=== PATIENT | female | born 1940 | race Caucasian/White ===

== ENCOUNTER → 2018-12-24 01:40 | Outpatient (REF) | payer MEDICARE, MEDICAID, SELFPAY ==
[2019-01-25 16:33] LABS: POC Glucose,Bedside 59 (70-110)
== END ==
LOC: LAB 01:40
PROVIDERS: Visit Provider Internal Medicine
DX: B95.8 Unspecified staphylococcus as the cause of diseases classified elsewhere (principal); H10.89 Other conjunctivitis
CPT/HCPCS: 82962; 87070; 87077; 87186

== ENCOUNTER 2019-01-26 19:40 | Observation (INO) ==
[2019-01-26 20:02] LABS: Microscopic, Urine URINE MICROSCOPIC (MICROSCOPIC)
[2019-01-26 20:03] LABS: Basophils # 0.1 K/mm3 (0-0.2); Basophils % 1.2 % (0.1-2.0); Eosinophils # 0.1 K/mm3 (0.0-0.4); Eosinophils % 1.2 % (0.1-12.0); Hematocrit 33.9 % (37.0-47.0); Hemoglobin 10.7 g/dL (12.2-16.2); Lymphocytes # 1.9 K/mm3 (0.7-4.5); Lymphocytes % 17.8 % (10-50); Mean Corpuscular HGB Conc 31.6 g/dL (31.8-35.4); Mean Corpuscular Hemoglobin 29.2 pg (27.0-31.2); Mean Corpuscular Volume 92.6 fl (81-99); Mean Platelet Volume 8.7 fl (7.4-10.4); Monocytes # 0.6 K/mm3 (0.1-1.0); Monocytes % 6.1 % (1.7-9.3); Neutrophils # 7.8 K/mm3 (1.8-7.8); Neutrophils % 73.7 % (37.0-80.0); Platelet Count 363 K/mm3 (142-424); Red Blood Count 3.66 M/mm3 (4.20-5.40); Red Cell Distribution Width 14.6 % (11.5-17.5); White Blood Count 10.5 K/mm3 (4.8-10.8)
[2019-01-26 20:04] LABS: Appearance,Urine CLEAR (Clear); Bilirubin,Urine Negative (Negative); Blood, Urine Negative (Negative); Color,Urine YELLOW (Yellow); Glucose,Urine (UA) Negative (Negative); Ketones,Urine Negative (Negative); Leukocyte Esterase,Urine Negative (Negative); PH,Urine 5.5 (5.0-8.5); Protein,Urine Negative (Negative); Urobilinogen,Urine 0.2 EU/dl (0.2)
[2019-01-26 20:15] LABS: Alanine Aminotransferase 24 U/L (12-78); Albumin Level 2.3 gm/dL (3.4-5.0); Calcium 9.5 mg/dL (8.5-10.1); Glucose 245 mg/dL (74-106); Sodium 132 mmol/L (136-145)
[2019-01-26 20:33] LABS: Bacteria,Urine Trace /lpf; Squamous Epithelial Cell,Urine Occasional #/hpf (0-5); WBC,Urine Occasional #/hpf (0-3)
[2019-01-26 20:40] LABS: Albumin/Globulin Ratio 0.5 (1.1-1.8); Alkaline Phosphatase 104 U/L (46-116); Anion Gap 16.8 mEq/L (5-15); Bilirubin,Total 0.5 mg/dL (0.2-1.0); Blood Urea Nitrogen 43 mg/dL (7-18); Carbon Dioxide 23 mmol/L (21.0-32.0); Chloride 97 mmol/L (98-107); Globulin 4.4 gm/dl (1.3-3.2); Total Protein,Serum 6.7 gm/dL (6.4-8.2)
[2019-01-26 20:41] LABS: Aspartate Amino Transferase 25 U/L (15-37); Potassium 4.8 mmoL/L (3.5-5.1)
--- NOTE | 2019-01-26 21:40 | Emergency Department Note ---
ED Disposition Clinical Impression: UTI due to Klebsiella species, Delirium due to general medical condition, Renal insufficiency Diabetes Qualifiers: Diabetes mellitus type: type 2 Diabetes mellitus meterman insulin use: unspecified correction insulin use status Diabetes mellitus complication status: with other specified complication Qualified Code(s): E11.69 - Type 2 diabetes mellitus with other specified complication Disposition: Admitted as Observation Condition on Discharge: Good - Critical Care Critical Care Time: No Attestation: On 01/26/19, the high probability of a clinically significant, sudden or life threatening deterioration of the following system(s) required my full and direct attention, intervention and personal management. The time I documented below is in addition to time spent performing reported procedures but includes the following listed in this critical care notation. Medical Decision Making - Medical Records Medical records reviewed: Yes: I reviewed the patient's medical records. - [place] Inquiry Pt receiving controlled substance: No Vital Signs: 01/26/19 19:41 01/26/19 20:09 01/26/19 21:19 Temperature 98.8 F 98.6 F 98.4 F Temperature Source Oral Oral Oral Pulse Rate [Right] 104 H 91 H 89 Respiratory Rate 18 18 18 Blood Pressure [Right Arm] 122/73 104/67 L 137/74 Blood Pressure Mean [Right Arm] 89 79 95 Blood Pressure Source [Right Arm] Automatic Cuff Automatic Cuff Automatic Cuff Blood Pressure Position [Right Arm] Supine Supine Supine 02 Sat by Pulse Oximetry 94 L 93 L 95 Oxygen Delivery Method Room Air Room Air Room Air 01/26/19 21:48 Temperature Temperature Source Pulse Rate [Right] 87 Respiratory Rate 18 Blood Pressure [Right Arm] 110/71 Blood Pressure Mean [Right Arm] 84 Blood Pressure Source [Right Arm] Automatic Cuff Blood Pressure Position [Right Arm] Supine 02 Sat by Pulse Oximetry 94 L Oxygen Delivery Method Room Air - Lab Data Lab results reviewed: Yes: I reviewed the patient's lab results. Lab Results 01/26/19 19:50: Urine Color Yellow, Urine Appearance Clear, Urine pH 5.5, Ur Specific [place] 1.020, Urine Protein Negative, Urine Glucose (UA) Negative, Urine Ketones Negative, Urine Blood Negative, Urine Nitrate Negative, Urine Bilirubin Negative, Urine Urobilinogen 0.2, Ur Leukocyte Esterase Negative, Urine WBC Occasional, Ur Squamous Epith Cells Occasional, Urine Bacteria Trace 01/26/19 19:50: WBC 10.5, RBC 3.66 L, Hgb 10.7 L, Hct 33.9 L, MCV 92.6, MCH 29.2, MCHC 31.6 L, RDW 14.6, Plt Count 363, MPV 8.7, Neut % (Auto) 73.7, Lymph % (Auto) 17.8, [place] % (Auto) 6.1, Eos % (Auto) 1.2, Baso % (Auto) 1.2, Neut # (Auto) 7.8, Lymph # (Auto) 1.9, [place] # (Auto) 0.6, Eos # (Auto) 0.1, Baso # (Auto) 0.1 01/26/19 19:50: Sodium 132 L, Potassium 4.8, Chloride 97 L, Carbon Dioxide 23, Anion Gap 16.8 H, BUN 43 H, Creatinine 2.89 H, Estimated Creat Clear 21, Estimated GFR 16 L*, Est GFR ( Amer) 19 L*, Glucose 245 H, Calcium 9.5, Total Bilirubin 0.5, AST 25, ALT 24, Alkaline Phosphatase 104, Troponin I < 0.02, Total Protein 6.7, Albumin 2.3 L, Globulin 4.4 H, Albumin/Globulin Ratio 0.5 L 01/26/19 20:00: POC Glucose 240 H Result diagrams: 01/26/19 19:50 01/26/19 19:50 Orders (Tests/Meds): ED MEDICATIONS Generic Name Dose Route Start Last Admin Trade Name Freq PRN Reason Stop Dose Admin Sodium Chloride 1,000 mls @ 999 mls/hr 01/26/19 20:00 01/26/19 21:58 Sod Chlor 0.9% 1000ml Bag IV 01/26/19 21:00 999 mls/hr .Q1H1M MELINA Administration Ertapenem 1 gm/ Sodium 50 mls @ 100 mls/hr 01/26/19 21:45 01/26/19 21:58 Chloride IV 02/09/19 21:44 100 mls/hr Q24H MELINA Administration Protocol ORDERS Category Date Time Status CT head/brain wo con Stat Cat Scan 01/26/19 19:50 Taken CXR AP view [XR chest AP] Stat Exams 01/26/19 21:40 Taken Lactic Acid Stat Lab 01/26/19 22:20 Received Blood Culture Stat Micro 01/26/19 22:20 Received - Radiology Data #1 Image(s): Chest Image Reviewed: Yes I reviewed the patient's radiology image Preliminary Findings: Normal/NAD - CT Data CT Scan: Head Time Received: 22:[address] Reviewed: Yes: I have viewed the radiologist's interpretation Preliminary Findings: Abnormal (chronic changes ) - ECG Data Tracing #1 Normal Sinus Rhythm: Yes Ischemic changes: non-specific ST-T wave changes Altered Mental Status HPI - General Chief Complaint: Altered Mental Status Stated Complaint: AMS w/ shaking Time Seen by Provider: 01/26/19 20:00 Mode of Arrival: EMS Source of Information: Patient, Relative, EMS, Medical Record Limitations: No Limitations Description of Symptoms (Recalled from ER Triage Doc. by RN): [place] claims pt has AMS and is shaking more than usual - History of Present Illness HPI narrative: pt with recent esbl pos uti and was sent from [facility] with sob and change in mental status - pt with no vomiting or diarrhea - no chest pain MD complaint: altered mental status Onset (ago): hour(s) Timing confirmed by: family member Severity: moderate Consistency of symptoms: waxing and waning - Related Data Home Medications Medication Instructions Recorded Confirmed Acetaminophen [Tylenol 500mg 500 mg PO NEEDED PRN 01/22/19 01/26/19 tablet] Allopurinol [Allopurinol 100mg 100 mg PO BID 01/22/19 01/26/19 tablet] Atorvastatin Calcium [Atorvastatin 20 mg PO HS 01/22/19 01/26/19 20mg Tab] Calcitriol [Rocaltrol] 0.25 mcg PO DAILY 01/22/19 01/26/19 Ferrous Sulfate 325 mg PO DAILY 01/22/19 01/26/19 Furosemide [Lasix 40mg tab] 40 mg PO DAILY 01/22/19 01/26/19 Levothyroxine Sodium [Synthroid 100 mcg PO DAILY 01/22/19 01/26/19 100mcg (0.1mg) tablet] Metoprolol Tartrate [Lopressor 25 mg PO BID 01/22/19 01/26/19 25mg tablet] Oxybutynin Chloride [Ditropan 5mg 5 mg PO HS 01/22/19 01/26/19 tablet] Pantoprazole Sodium [Protonix 40mg 40 mg PO DAILY 01/22/19 01/26/19 tablet] Rivaroxaban [Xarelto 15mg tablet] 15 mg PO DAILY 01/22/19 01/26/19 Tramadol HCl [Tramadol 50mg 50 mg PO NEEDED PRN 01/22/19 01/26/19 Tab] Linagliptin [Tradjenta 5mg tablet] 5 mg PO DAILY 01/26/19 01/26/19 levoFLOXacin [Levaquin 500mg 500 mg PO DAILY 01/26/19 01/26/19 tab] Allergies Allergy/AdvReac Type Severity Reaction Status Date / Time No Known Allergies Allergy Verified 01/22/19 05:09 [facility] History - Hepatitis A Screen Drug use history?: No High risk sexual behaviors?: No History of sexually transmitted infection?: No Currently employed?: No Childcare worker?: No Do you have indoor plumbing?: Yes Do you have electricity?: Yes Attestation statement:: This patient has been screened for Hepatitis A risk factors. I have reviewed the patient's past medical history: Yes Medical History: Reports:: Diabetes Mellitus Type 2 - Social History Smoking Status: Former smoker Alcohol Intake: never Occupational Status: retired - Psychiatric History Expresses thoughts of harming self/others: None Suicide Plan Description: No Plan ROS Obtained: Yes All systems reviewed & no additional complaints - Constitutional Constitutional: Reports as per HPI, Denies fever(s) - Eyes Eyes: Denies change in vision - ENT Ears, Nose, Mouth, and Throat: Denies sore throat - Cardiovascular Cardiovascular: Denies chest pain - Respiratory Respiratory: No cough - Gastrointestinal Gastrointestingal: Denies: abdominal pain - Genitourinary Female Genitourinary: Denies hematuria - Musculoskeletal Musculoskeletal: Denies joint pain - Integumentary/Breasts Skin/Breast: Denies rash - Neurologic Neurologic: Denies seizure-like activity Physical Exam - General General appearance: alert - Head Head exam: normocephalic - Eye Eye exam: Present: PERRL, EOMI. Absent: scleral icterus - ENT ENT exam: Present: mucous membranes dry - Neck Neck exam: Present: trachea midline - Respiratory Respiratory exam: Present: other (dec bs bilat ). Absent: respiratory distress - Cardiovascular Cardiovascular exam: Present: regular rate, systolic murmur, +S4 - Abdominal Exam Abdominal exam: Present: soft. Absent: tenderness - Extremities Exam Extremities exam: Present: full ROM - Neurological Exam Neurological exam: Present: alert, CN II-XII intact - Psychiatric Psychiatric exam: Present: other (confused w/o focal changes ) - Skin Skin exam: Absent: rash
[2019-01-27 06:34] LABS: Anion Gap 11.3 mEq/L (5-15); Calcium 9.1 mg/dL (8.5-10.1); Potassium 4.3 mmoL/L (3.5-5.1)
[2019-01-27 06:35] LABS: Basophils # 0.1 K/mm3 (0-0.2); Basophils % 0.9 % (0.1-2.0); Eosinophils # 0.1 K/mm3 (0.0-0.4); Eosinophils % 1.8 % (0.1-12.0); Hematocrit 29.1 % (37.0-47.0); Lymphocytes # 1.9 K/mm3 (0.7-4.5); Lymphocytes % 24.1 % (10-50); Mean Corpuscular HGB Conc 30.8 g/dL (31.8-35.4); Mean Corpuscular Hemoglobin 28.8 pg (27.0-31.2); Mean Corpuscular Volume 93.5 fl (81-99); Mean Platelet Volume 8.4 fl (7.4-10.4); Monocytes # 0.6 K/mm3 (0.1-1.0); Monocytes % 7.4 % (1.7-9.3); Neutrophils # 5.3 K/mm3 (1.8-7.8); Neutrophils % 65.8 % (37.0-80.0); Platelet Count 277 K/mm3 (142-424); Red Blood Count 3.11 M/mm3 (4.20-5.40); Red Cell Distribution Width 14.5 % (11.5-17.5)
[2019-01-27 06:50] LABS: Hemoglobin 9.1 g/dL (12.2-16.2)
--- NOTE | 2019-01-27 07:25 | Pharmacy Consult Notes ---
[facility] Pharmacy VTE Monitoring - Patient Demographics Admission date: 01/26/19 Report Date: 01/27/19 Time: 07:25 Allergies/Adverse Reactions: Patient Allergies No Known Allergies Allergy (Verified 01/22/19 05:09) Height: 1.65 m Weight: 74.871 kg Patient Problems: Current Active Problems (Updated 01/26/19 @ 22:53 by Mike Dinh MD) Renal insufficiency (Acute) UTI due to Klebsiella species (Acute) Delirium due to general medical condition (Acute) Diabetes (Acute) - VTE Risk Labs: VTE Related Lab Results Hgb 9.1 g/dL (12.2-16.2) L D 01/27/19 06:12 Hct 29.1 % (37.0-47.0) L 01/27/19 06:12 Plt Count 277 K/mm3 (142-424) 01/27/19 06:12 BUN 40 mg/dL (7-18) H 01/27/19 06:12 Creatinine 2.66 mg/dL (0.55-1.02) H 01/27/19 06:12 Estimated Creat Clear 21 mL/min (50-200) 01/27/19 06:12 Was VTE Risk Assessment Performed: Yes VTE Score: 7 VTE Risk Level: Moderate Risk Clinical Trial Participant: No - Prophylaxis VTE Prophylaxis Ordered?: Yes Types of VTE Prophylaxis: TEDS Knee High, Pharmacological (xarelto) Location of Applied Device: Not Applicable
--- NOTE | 2019-01-27 08:31 | History & Physical Report ---
*Admission Date: 01/26/19 *Chief complaint: Shaking/poor oral intake/renal insufficiency *History of present illness: 78-year-old white female, recently checked into the [facility] with poor functional status, status post removal of meningioma and chronic kidney disease who was admitted to [facility] about 10 days ago. Diuretics were increased and she was found to have a urinary tract infection with E. coli, and has been on antibiotics as an outpatient. She became more dehydrated, and although her edema improved, came very shaky yesterday and some delirium was noted. Brought to the emergency department where she was found to have worsening renal insufficiency, dehydrated, and was admitted to hospital for further diagnostic testing. [facility] History I have reviewed the patient's past medical history: Yes Medical History: Reports:: Cancer, Diabetes Mellitus Type 2, Hyperlipidemia, Hypertension Denies:: Diabetes Mellitus Type 1, MRSA *Have you ever received a pneumonia vaccine?: Yes *Have you received a flu vaccine this season?: No Other Medical History: Reports: Hypothyroidism Other Surgeries: Yes: Cancer Surgery, Other (craniotomy for tumor removal) Amputation: No Fractures: No Comment: Meningioma removal at several months ago - *Social History Smoking Status: Former smoker Alcohol Intake: never *Occupational Status:: retired *Travel in the last 8 weeks: None - Psychiatric History Expresses thoughts of harming self/others: None Suicide Plan Description: No Plan Family Hx:: Unable to obtain Review of Systems - Review of Systems Review of systems:: pertinent systems reviewed and negative unless documented below - Constitutional Reports anorexia, Reports body ache(s) - Eyes Denies blind spots, Denies blurry vision, Denies change in vision - ENT Denies abnormal hearing - *Cardiovascular Reports excessive sweating, Reports generalized swelling, Denies chest pain, Denies chest pain at rest - *Respiratory Denies change in phlegm color, Denies shortness of breath with activity - *Gastrointestinal Denies abdominal pain, Denies bloating - *Musculoskeletal Reports abnormal walking, Reports joint swelling - *Neurologic Reports abnormal walking, Reports behavioral changes, Denies seizure-like activity - Psychiatric Reports abnormal sleep pattern Meds Home Medications Medication Instructions Recorded Confirmed Type Acetaminophen [Tylenol 500mg 500 mg PO NEEDED PRN 01/22/19 01/27/19 History tablet] Allopurinol [Allopurinol 100mg 100 mg PO DAILY 01/22/19 01/27/19 History tablet] Atorvastatin Calcium [Atorvastatin 20 mg PO HS 01/22/19 01/27/19 History 20mg Tab] Calcitriol [Rocaltrol] 0.25 mcg PO DAILY 01/22/19 01/27/19 History Ferrous Sulfate 325 mg PO BID 01/22/19 01/27/19 History Furosemide [Lasix 40mg tab] 40 mg PO DAILY 01/22/19 01/27/19 History Levothyroxine Sodium [Synthroid 100 mcg PO DAILY 01/22/19 01/27/19 History 100mcg (0.1mg) tablet] Metoprolol Tartrate [Lopressor 25 mg PO BID 01/22/19 01/27/19 History 25mg tablet] Oxybutynin Chloride [Ditropan 5mg 5 mg PO HS 01/22/19 01/27/19 History tablet] Pantoprazole Sodium [Protonix 40mg 40 mg PO DAILY 01/22/19 01/27/19 History tablet] Rivaroxaban [Xarelto 15mg tablet] 15 mg PO DAILY 01/22/19 01/27/19 History Tramadol HCl [Tramadol 50mg 50 mg PO TIDP PRN 01/22/19 01/27/19 History Tab] Linagliptin [Tradjenta 5mg tablet] 5 mg PO DAILY 01/26/19 01/27/19 History Allergies Allergy/AdvReac Type Severity Reaction Status Date / Time No Known Allergies Allergy Verified 01/22/19 05:09 Exam Vital signs and Labs for Last 24 Hours: Temp Pulse Resp BP Pulse Ox 99.1 F 86 18 116/65 94 L 01/27/19 04:00 01/27/19 04:00 01/27/19 04:00 01/27/19 04:00 01/27/19 04:00 Laboratory Results - last 24 hr 01/26/19 19:50: Urine Color Yellow, Urine Appearance Clear, Urine pH 5.5, Ur Specific [place] 1.020, Urine Protein Negative, Urine Glucose (UA) Negative, Urine Ketones Negative, Urine Blood Negative, Urine Nitrate Negative, Urine Bilirubin Negative, Urine Urobilinogen 0.2, Ur Leukocyte Esterase Negative, Urine WBC Occasional, Ur Squamous Epith Cells Occasional, Urine Bacteria Trace 01/26/19 19:50: WBC 10.5, RBC 3.66 L, Hgb 10.7 L, Hct 33.9 L, MCV 92.6, MCH 29.2, MCHC 31.6 L, RDW 14.6, Plt Count 363, MPV 8.7, Neut % (Auto) 73.7, Lymph % (Auto) 17.8, [place] % (Auto) 6.1, Eos % (Auto) 1.2, Baso % (Auto) 1.2, Neut # (Auto) 7.8, Lymph # (Auto) 1.9, [place] # (Auto) 0.6, Eos # (Auto) 0.1, Baso # (Auto) 0.1 01/26/19 19:50: Sodium 132 L, Potassium 4.8, Chloride 97 L, Carbon Dioxide 23, Anion Gap 16.8 H, BUN 43 H, Creatinine 2.89 H, Estimated Creat Clear 21, Estimated GFR 16 L*, Est GFR ( Amer) 19 L*, Glucose 245 H, Calcium 9.5, Total Bilirubin 0.5, AST 25, ALT 24, Alkaline Phosphatase 104, Troponin I < 0.02, Total Protein 6.7, Albumin 2.3 L, Globulin 4.4 H, Albumin/Globulin Ratio 0.5 L 01/26/19 20:00: POC Glucose 240 H 01/26/19 22:20: Lactate 1.1 01/27/19 06:09: POC Glucose 170 H 01/27/19 06:12: WBC 8.0, RBC 3.11 L, Hgb 9.1 L D, Hct 29.1 L, MCV 93.5, MCH 28.8, MCHC 30.8 L, RDW 14.5, Plt Count 277, MPV 8.4, Neut % (Auto) 65.8, Lymph % (Auto) 24.1, [place] % (Auto) 7.4, Eos % (Auto) 1.8, Baso % (Auto) 0.9, Neut # (Auto) 5.3, Lymph # (Auto) 1.9, [place] # (Auto) 0.6, Eos # (Auto) 0.1, Baso # (Auto) 0.1 01/27/19 06:12: Sodium 136, Potassium 4.3, Chloride 104, Carbon Dioxide 25, Anion Gap 11.3, BUN 40 H, Creatinine 2.66 H, Estimated Creat Clear 21, Estimated GFR 17 L*, Est GFR ( Amer) 21 L, Glucose 168 H D, Calcium 9.1 I & O for Last 24 hours: Intake & Output 01/24/19 01/25/19 01/26/19 01/27/19 11:59 11:59 11:59 11:59 Intake Total 1623 / 1623 Balance 1623 / 1623 Weight 165 lb 1 oz Narrative: Patient is pleasant, talkative. Is somewhat shaky in her hands, but no lower extremity shakiness or cerebral shakiness. Heart rate regular. Lungs are clear in the anterior laird, abdomen soft nontender Extremity edema has essentially resolved compared to visit in the [facility]. No skin breakdown. Able to move all extremities equally but is extremely weak. Assessment and Plan (1) Delirium due to general medical condition Current visit: Yes Status: Acute Category: Medical Code(s): F05 - Delirium due to known physiological condition I think this is from multiple issues. Check EEG. Labs seem to have improved this morning. 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 Sliding scale insulin. (3) Renal insufficiency Current visit: Yes Status: Acute Category: Medical Code(s): N28.9 - Disorder of kidney and ureter, unspecified Slightly improving. Continue current fluids. (4) UTI due to Klebsiella species Current visit: Yes Status: Acute Category: Medical Code(s): N39.0 - Urinary tract infection, site not specified; B96.1 - Klebsiella pneumoniae [K. pneumoniae] as the cause of diseases classified elsewhere On appropriate therapy. (5) Encephalomalacia Current visit: No Status: Acute Category: Medical Code(s): G93.89 - Other specified disorders of brain EEG.
--- NOTE | 2019-01-27 13:20 | Cardiology Report ---
PROCEDURE: 2-D M-mode and color Doppler study INDICATIONS FOR THE TEST: Chest pain COPD Heart Murmur Tobacco SmokingEX Palpitations Fatigue Syncope Edema Hypertension Diabetes Mellitus+ Rheumatic Fever SOB+AMAYA+Obesity Hyperlipidemia Family History HD Additional History UTI, acuted delerium, SEBASTIAN PATIENT INFORMATION HEIGHT: 65 WEIGHT: 165 GENDER: Female B/P: 137/74 2-D/M-MODE INTERPRETATION: 2-D MEASUREMENTS OBSERVED VALUES IN CMS Right Ventricular Dimension (RVDd) 2.8 Interventricular Septum (Thickness)(IVsd) 1.0 Left Ventricular Internal Dimensions(LVIDd) 4.1 Left Ventricular Posterior Wall (Thickness)(LVPWd) 1.0 Aortic Root 2.8 Aortic Cusp Separation 1.9 Left Atrial Dimensions (LAD) 3.3 2D 1. Left atrium is mildly enlarged, left ventricle is normal size, mild concentric left ventricular hypertrophy, visually estimated ejection fraction 55% with no regional wall motion abnormality. 2. The right atrium and right ventricle are mildly enlarged with normal contractility. 3. The aortic valve is thickened and calcified, leaflet continue to display mobility. 4. The mitral and tricuspid valve leaflets are minimally thickened. 5. The pulmonic valve is poorly visualized. 6. No significant pericardial effusion noted. DOPPLER INTERROGATION: Doppler interrogation of the aortic, mitral and tricuspid valvular presence of mean gradient of 14 mmHg across the aortic valve, consistent with mild aortic stenosis, there is no aortic insufficiency. Mild mitral and tricuspid regurgitation noted, calculated right ventricular systolic pressure is 39 mmHg consistent with mild pulmonary hypertension, grade 1 diastolic dysfunction seen without tissue Doppler evidence of raised left atrial pressure. CONCLUSION: 1. Mild biatrial enlargement, normal left ventricular size, mild concentric left ventricular hypertrophy, visually estimated ejection fraction of 55% with no regional wall motion abnormality, grade 1 diastolic dysfunction seen without tissue Doppler evidence of raised left atrial pressure. 2. Thickened and calcified aortic valve with mild aortic stenosis. 3. Mild mitral and tricuspid regurgitation, calculated at ventricular systolic pressure 39 mmHg consistent with mild pulmonary hypertension. 4. Mildly enlarged right ventricle with normal contractility. 5. No significant pericardial effusion noted.
[2019-01-28 06:35] LABS: Basophils # 0.1 K/mm3 (0-0.2); Basophils % 0.8 % (0.1-2.0); Eosinophils # 0.2 K/mm3 (0.0-0.4); Eosinophils % 2.3 % (0.1-12.0); Hematocrit 29.3 % (37.0-47.0); Hemoglobin 8.9 g/dL (12.2-16.2); Lymphocytes # 2.5 K/mm3 (0.7-4.5); Lymphocytes % 29.1 % (10-50); Mean Corpuscular HGB Conc 30.3 g/dL (31.8-35.4); Mean Corpuscular Hemoglobin 28.8 pg (27.0-31.2); Mean Corpuscular Volume 95.1 fl (81-99); Mean Platelet Volume 8.8 fl (7.4-10.4); Monocytes # 0.6 K/mm3 (0.1-1.0); Monocytes % 6.7 % (1.7-9.3); Neutrophils # 5.2 K/mm3 (1.8-7.8); Neutrophils % 61.2 % (37.0-80.0); Platelet Count 272 K/mm3 (142-424); Red Blood Count 3.08 M/mm3 (4.20-5.40); Red Cell Distribution Width 14.8 % (11.5-17.5); White Blood Count 8.5 K/mm3 (4.8-10.8)
[2019-01-28 06:51] LABS: Albumin Level 1.9 gm/dL (3.4-5.0); Albumin/Globulin Ratio 0.5 (1.1-1.8); Anion Gap 11.7 mEq/L (5-15); Bilirubin,Total 0.4 mg/dL (0.2-1.0); Globulin 3.6 gm/dl (1.3-3.2); Potassium 4.7 mmoL/L (3.5-5.1); Total Protein,Serum 5.5 gm/dL (6.4-8.2)
--- NOTE | 2019-01-28 10:31 | Progress Note ---
Internal Medicine - PN: Subj *Date: 01/28/19 *Time: 06:30 Interval history: Feels better overnight. Less shaking. Exam Vital signs and Labs for Last 24 Hours: Temp Pulse Resp BP Pulse Ox 98.2 F 79 19 103/54 L 94 L 01/28/19 08:00 01/28/19 08:00 01/28/19 08:00 01/28/19 08:00 01/28/19 08:00 Laboratory Results - last 24 hr 01/27/19 11:55: POC Glucose 166 H 01/27/19 16:58: POC Glucose 212 H 01/27/19 20:58: POC Glucose 205 H 01/28/19 06:22: WBC 8.5, RBC 3.08 L, Hgb 8.9 L, Hct 29.3 L, MCV 95.1, MCH 28.8, MCHC 30.3 L, RDW 14.8, Plt Count 272, MPV 8.8, Neut % (Auto) 61.2, Lymph % (Auto) 29.1, [place] % (Auto) 6.7, Eos % (Auto) 2.3, Baso % (Auto) 0.8, Neut # (Auto) 5.2, Lymph # (Auto) 2.5, [place] # (Auto) 0.6, Eos # (Auto) 0.2, Baso # (Auto) 0.1 01/28/19 06:22: Sodium 141, Potassium 4.7, Chloride 108 H, Carbon Dioxide 26, Anion Gap 11.7, BUN 32 H, Creatinine 2.23 H, Estimated Creat Clear 26, Estimated GFR 21 L, Est GFR ( Amer) 26 L D, Glucose 116 H, Calcium 9.0, Total Bilirubin 0.4, AST 16 D, ALT 16 D, Alkaline Phosphatase 92, Total Protein 5.5 L, Albumin 1.9 L D, Globulin 3.6 H, Albumin/Globulin Ratio 0.5 L 01/28/19 06:50: POC Glucose 116 H I & O for Last 24 hours: Intake & Output 01/25/19 01/26/19 01/27/19 01/28/19 11:59 11:59 11:59 11:59 Intake Total 1862 1963 / 1963 Output Total 600 / 600 Balance 1862 1363 / 1363 Weight 165 lb 1 oz 168 lb 3 oz Narrative: Alert, oriented times two. Less shaking. RRR, lungs clear Abd soft. No edema at this time. management supervisor intact. 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 pneumoniae] as the cause of diseases classified elsewhere (5) Encephalomalacia Current visit: No Status: Acute Category: Medical Code(s): G93.89 - Other specified disorders of brain - Assessment and plan all Dx Assessment and Plan for all problems:: SEBASTIAN on CKD improving. Stay on IVF. Close f.u of labs. ? DC in AM.
[2019-01-29 07:07] LABS: Basophils # 0.1 K/mm3 (0-0.2); Basophils % 0.8 % (0.1-2.0); Eosinophils # 0.1 K/mm3 (0.0-0.4); Eosinophils % 1.6 % (0.1-12.0); Hematocrit 30.7 % (37.0-47.0); Hemoglobin 9.6 g/dL (12.2-16.2); Lymphocytes # 2.1 K/mm3 (0.7-4.5); Lymphocytes % 23.5 % (10-50); Mean Corpuscular HGB Conc 31.2 g/dL (31.8-35.4); Mean Corpuscular Hemoglobin 29.6 pg (27.0-31.2); Mean Corpuscular Volume 94.8 fl (81-99); Mean Platelet Volume 8.6 fl (7.4-10.4); Monocytes # 0.5 K/mm3 (0.1-1.0); Monocytes % 5.6 % (1.7-9.3); Neutrophils # 6.1 K/mm3 (1.8-7.8); Neutrophils % 68.5 % (37.0-80.0); Platelet Count 286 K/mm3 (142-424); Red Blood Count 3.24 M/mm3 (4.20-5.40); Red Cell Distribution Width 14.8 % (11.5-17.5); White Blood Count 8.9 K/mm3 (4.8-10.8)
[2019-01-29 07:15] LABS: Anion Gap 14.2 mEq/L (5-15); Potassium 4.2 mmoL/L (3.5-5.1)
--- NOTE | 2019-01-29 07:30 | Discharge Summary ---
General - General Admission date:: 01/26/19 Discharge date: 01/29/19 HPI HPI: 78-year-old white female, recently checked into the [facility] with poor functional status, status post removal of meningioma and chronic kidney disease who was admitted to [facility] about 10 days ago. Diuretics were increased and she was found to have a urinary tract infection with E. coli, and has been on antibiotics as an outpatient. She became more dehydrated, and although her edema improved, came very shaky yesterday and some delirium was noted. Brought to the emergency department where she was found to have worsening renal insufficiency, dehydrated, and was admitted to hospital for further diagnostic testing. Hospital Course Hospital Course: Patient was admitted to the hospital, IV fluids were started. Her acute kidney injury superimposed on chronic kidney injury improved, as noted below and lab flow, creatinine improving to 1.9. She was placed on Invanz intravenously for her urinary tract infection, blood cultures were negative after 48 hours, and repeat urine cultures were also negative. Patient's diuretics were held, she did well with her hospital diet and no fluid reaccumulation was noted. CT scan of head showed no acute changes over age-related changes and EEG showed slowing consistent with age-related/metabolic encephalopathy but no epileptiform discharges. This morning she was improving in regards to shakiness, had a good diet. Remains somewhat disoriented but this seems to be her baseline. She had a mild decrease in hemoglobin, probably secondary to delusional effect but this rebounded this morning. Plan will be to discharge back to detention, to finish up p.o. antibiotic-I reviewed sensitivity panels from detention culture that showed E. coli urinary tract infection sensitive to levofloxacin. We will continue this at the detention. We will also adjust diuretic regimen now that she has been adequately diuresed. We will do cautious Lasix therapy on a daily basis, she will follow a low-salt diet, and we will get basic metabolic profile on Wednesday, February 01. Follow-up will be per our regular rounds next week. Objective Vital signs: Temp Pulse Resp BP Pulse Ox 97.8 F 81 18 120/71 97 01/29/19 03:46 01/29/19 03:46 01/29/19 03:46 01/29/19 03:46 01/29/19 03:46 Narrative: Alert, pleasant. Oriented to self, disoriented to place and time. Shakiness is much improved. Oropharynx clear and moist. Heart rate regular. Lungs have good air movement. Abdomen soft and nontender. Peripheral extremities have some brawny skin changes consistent with recent edema but edema is vastly improved. Pulses are present in all 4 extremities. No cranial nerve deficits. Somewhat globally weak but no focal deficits. Results Labs on day of discharge: Labs from last 24 hours 01/29/19 01/29/19 01/29/19 07:00 07:00 05:49 WBC 8.9 RBC 3.24 L Hgb 9.6 L Hct 30.7 L MCV 94.8 MCH 29.6 MCHC 31.2 L RDW 14.8 Plt Count 286 MPV 8.6 Neut % (Auto) 68.5 Lymph % (Auto) 23.5 [place] % (Auto) 5.6 Eos % (Auto) 1.6 Baso % (Auto) 0.8 Neut # (Auto) 6.1 Lymph # (Auto) 2.1 [place] # (Auto) 0.5 Eos # (Auto) 0.1 Baso # (Auto) 0.1 Sodium 142 Potassium 4.2 Chloride 108 H Carbon Dioxide 24 Anion Gap 14.2 BUN 25 H Creatinine 1.90 H Estimated Creat Clear 30 Estimated GFR 26 L Est GFR ( Amer) 31 L Glucose 151 H POC Glucose 148 H Calcium 9.0 01/28/19 01/28/19 01/28/19 20:12 16:43 11:20 WBC RBC Hgb Hct MCV MCH MCHC RDW Plt Count MPV Neut % (Auto) Lymph % (Auto) [place] % (Auto) Eos % (Auto) Baso % (Auto) Neut # (Auto) Lymph # (Auto) [place] # (Auto) Eos # (Auto) Baso # (Auto) Sodium Potassium Chloride Carbon Dioxide Anion Gap BUN Creatinine Estimated Creat Clear Estimated GFR Est GFR ( Amer) Glucose POC Glucose 211 H 176 H 260 H Calcium Preliminary micro results at discharge 01/26/19 22:20 Blood Culture - Preliminary Blood NO GROWTH AFTER 48 HOURS 01/26/19 22:20 Blood Culture - Preliminary Blood NO GROWTH AFTER 48 HOURS DS: Diagnosis - Discharge Diagnosis (1) Delirium due to general medical condition Status: Resolved (2) Diabetes Status: Chronic (3) Renal insufficiency Status: Chronic (4) UTI due to Klebsiella species Status: Ruled-out (5) Encephalomalacia Status: Chronic (6) E. coli UTI Status: Acute Discharge Plan - Patient Discharge Instructions ACTIVITY: Continue current activity DIET: low salt diet Patient Instructions: Delirium, DI for Urinary Tract Infection (UTI), DI for Multiple Drug-resistant Organism (MDRO) Infection - Follow up Plan Follow up with: Denise Oviedo APRN [Primary Care Provider] - Disposition: er [facility] Home Medications: Home Medications Medication Instructions Recorded Confirmed Type Acetaminophen [Tylenol 500mg 500 mg PO NEEDED PRN 01/22/19 01/27/19 History tablet] Allopurinol [Allopurinol 100mg 100 mg PO DAILY 01/22/19 01/27/19 History tablet] Atorvastatin Calcium [Atorvastatin 20 mg PO HS 01/22/19 01/27/19 History 20mg Tab] Calcitriol [Rocaltrol] 0.25 mcg PO DAILY 01/22/19 01/27/19 History Ferrous Sulfate 325 mg PO BID 01/22/19 01/27/19 History Furosemide [Lasix 40mg tab] 40 mg PO DAILY 01/22/19 01/27/19 History Levothyroxine Sodium [Synthroid 100 mcg PO DAILY 01/22/19 01/27/19 History 100mcg (0.1mg) tablet] Metoprolol Tartrate [Lopressor 25 mg PO BID 01/22/19 01/27/19 History 25mg tablet] Oxybutynin Chloride [Ditropan 5mg 5 mg PO HS 01/22/19 01/27/19 History tablet] Pantoprazole Sodium [Protonix 40mg 40 mg PO DAILY 01/22/19 01/27/19 History tablet] Rivaroxaban [Xarelto 15mg tablet] 15 mg PO DAILY 01/22/19 01/27/19 History Tramadol HCl [Tramadol 50mg 50 mg PO TIDP PRN 01/22/19 01/27/19 History Tab] Linagliptin [Tradjenta 5mg tablet] 5 mg PO DAILY 01/26/19 01/27/19 History levoFLOXacin [Levaquin 500mg 500 mg PO DAILY #5 tab 01/29/19 Rx tab] Prescriptions/Medication Reconciliation: New levoFLOXacin [Levaquin 500mg tab] 500 mg PO DAILY #5 tab Continued Metoprolol Tartrate [Lopressor 25mg tablet] 25 mg PO BID Allopurinol [Allopurinol 100mg tablet] 100 mg PO DAILY Furosemide [Lasix 40mg tab] 40 mg PO DAILY Tramadol HCl [Tramadol 50mg Tab] 50 mg PO TIDP PRN PRN Reason: Moderate Pain Rivaroxaban [Xarelto 15mg tablet] 15 mg PO DAILY Oxybutynin Chloride [Ditropan 5mg tablet] 5 mg PO HS Levothyroxine Sodium [Synthroid 100mcg (0.1mg) tablet] 100 mcg PO DAILY Ferrous Sulfate 325 mg PO BID Calcitriol [Rocaltrol] 0.25 mcg PO DAILY Acetaminophen [Tylenol 500mg tablet] 500 mg PO NEEDED PRN PRN Reason: pain Pantoprazole Sodium [Protonix 40mg tablet] 40 mg PO DAILY Atorvastatin Calcium [Atorvastatin 20mg Tab] 20 mg PO HS Linagliptin [Tradjenta 5mg tablet] 5 mg PO DAILY
== END 2019-01-29 09:50 ==
LOC: ER 19:40 → 2ND 19:40
PROVIDERS: ADMIT Family Medicine; ATTEND Internal Medicine Adolescent Medicine
CPT/HCPCS: 36415; 70450; 71010; 71045; 80048; 80053; 81001; 82962; 83605; 84484; 85025; 87040; 93005; 93306; 95816; 96365; 96367; 99285; G0378; J1335

== ENCOUNTER → 2019-02-09 15:22 | Outpatient (CLI) | payer MEDICARE, MEDICAID, SELFPAY ==
[2019-02-09 15:24] LABS: Adenovirus F 40/41, stool Not Detected (NotDetected); Astrovirus Not Detected (NotDetected); Campylobacter Not Detected (NotDetected); Clostridium Difficile A/B, PCR Not Detected (NotDetected); Cryptosporidium Not Detected (NotDetected); Cyclospora Cayetanesis Not Detected (NotDetected); Entamoeba histolytica Not Detected (NotDetected); Enteroaggregative E coli Not Detected (NotDetected); Enteropathogenic E coli Not Detected (NotDetected); Enterotoxigenic E coli Not Detected (NotDetected); Giardia lamblia Not Detected (NotDetected); Norovirus Not Detected (NotDetected); Plesimonas Shigalloides, PCR Not Detected (NotDetected); Rotavirus A Not Detected (NotDetected); Salmonella, PCR Not Detected (NotDetected); Sapovirus Not Detected (NotDetected); Shiga-like toxin E coli Not Detected (NotDetected); Shigella Enterovasive E coli Not Detected (NotDetected); Vibrio Cholerae Not Detected (NotDetected); Vibrio, PCR Not Detected (NotDetected); Yersinia Entercolitica, PCR Not Detected (NotDetected)
== END ==
PROVIDERS: Visit Provider Internal Medicine Adolescent Medicine
DX: R19.7 Diarrhea, unspecified (principal)
CPT/HCPCS: 87506

== ENCOUNTER → 2019-02-18 00:23 | Outpatient (REF) | payer MEDICARE, MEDICAID, SELFPAY ==
[2019-02-18 00:36] LABS: Microscopic, Urine URINE MICROSCOPIC (MICROSCOPIC)
[2019-02-18 00:49] LABS: Appearance,Urine CLOUDY (Clear); Bilirubin,Urine Negative (Negative); Blood, Urine 1+ (Negative); Color,Urine YELLOW (Yellow); Glucose,Urine (UA) TRACE (Negative); Ketones,Urine Negative (Negative); Leukocyte Esterase,Urine 3+ (Negative); Nitrate,Urine Negative (Negative); Protein,Urine 1+ (Negative); Specific Gravity, Urine 1.015 (1.005-1.030); Urobilinogen,Urine 0.2 EU/dl (0.2)
[2019-02-18 00:52] LABS: WBC,Urine TNTC #/hpf (0-3)
== END ==
LOC: LAB 00:23
PROVIDERS: Visit Provider Internal Medicine Adolescent Medicine
DX: N39.0 Urinary tract infection, site not specified (principal)
CPT/HCPCS: 81001; 87086

== ENCOUNTER 2019-03-31 18:50 | Inpatient (IN) ==
[2019-03-31 19:06] LABS: Microscopic, Urine URINE MICROSCOPIC (MICROSCOPIC)
--- NOTE | 2019-03-31 19:11 | Emergency Department Note ---
ED Disposition Clinical Impression: UTI (urinary tract infection), Dehydration Disposition: Admitted as Observation Condition on Discharge: Fair Time of Disposition: 19:59 - Critical Care Critical Care Time: No Attestation: On , the high probability of a clinically significant, sudden or life threatenin g deterioration of the following system(s) required my full and direct attention, intervention and personal management. The time I documented below is in addition to time spent performing reported procedures but includes the following listed in this critical care notation. Medical Decision Making - Medical Records Medical records reviewed: Yes: I reviewed the patient's medical records. - Preston Inquiry Pt receiving controlled substance: No Preston was queried for this patient: No Vital Signs: 03/31/19 18:50 03/31/19 18:54 Pulse Rate [Right Brachial] 83 83 Respiratory Rate 16 16 Blood Pressure [Right Arm] 109/57 L 109/57 L Blood Pressure Mean [Right Arm] 74 74 Blood Pressure Source [Right Arm] Automatic Cuff Automatic Cuff Blood Pressure Position [Right Arm] Sitting Sitting 02 Sat by Pulse Oximetry 98 98 Oxygen Delivery Method Room Air Room Air - Lab Data Lab results reviewed: Yes: I reviewed the patient's lab results. Lab Results 03/31/19 18:45: WBC 8.3, RBC 3.99 L, Hgb 11.7 L, Hct 37.4, MCV 93.7, MCH 29.3, MCHC 31.3 L, RDW 15.4, Plt Count 308, MPV 9.4, Neut % (Auto) 47.6, Lymph % (Auto) 38.6, [place] % (Auto) 7.0, Eos % (Auto) 6.1, Baso % (Auto) 0.7, Neut # (A uto) 4.0, Lymph # (Auto) 3.2, [place] # (Auto) 0.6, Eos # (Auto) 0.5 H, Baso # (Auto) 0.1 03/31/19 18:45: Urine Color Yellow, Urine Appearance Turbid, Urine pH 6.0, Ur Specific [place] 1.025, Urine Protein 2+, Urine Glucose (UA) Negative, Urine Ketones Trace, Urine Blood 2+, Urine Nitrate Negative, Urine Bilirubin Negative, Urine Urobilinogen 0.2, Ur Leukocyte Esterase 3+ A, Urine WBC Tntc, Ur Squamous Epith Cells Occasional, Urine Bacteria 4+ 03/31/19 18:47: Sodium 138, Potassium 3.5, Chloride 102, Carbon Dioxide 25, Anion Gap 14.5, BUN 58 H, Creatinine 3.27 H, Estimated Creat Clear 16, Estimated GFR 14 L*, Est GFR ( Amer) 17 L*, Glucose 191 H, Calcium 10.0, Troponin I < 0.02 03/31/19 18:47: Lactate 1.4 Result diagrams: 03/31/19 18:45 03/31/19 18:47 Orders (Tests/Meds): ED MEDICATIONS Generic Name Dose Route Start Last Admin Trade Name Freq PRN Reason Stop Dose Admin Ceftriaxone Sodium 2 gm/ 100 mls @ 200 mls/hr 03/31/19 19:45 03/31/19 19:54 Sodium Chloride IV 04/14/19 19:44 200 mls/hr Q24H MELINA Administration Protocol Ertapenem 1 gm/ Sodium 50 mls @ 100 mls/hr 03/31/19 20:00 Chloride IV 04/14/19 19:59 Q24H MELINA Protocol ORDERS Category Date Time Status CT abdomen pelvis wo con Stat Cat Scan 03/31/19 19:[address] head/brain wo con Stat Cat Scan 03/31/19 19:06 Taken XR chest AP Stat Exams 03/31/19 19:06 Taken Blood Culture Stat Micro 03/31/19 19:15 Received Urine Culture Stat Micro 03/31/19 18:45 Received - Physician Consults Physician Consulted: claritza Time: 19:59 Reason -: Admission General Adult HPI - General Chief complaint: Chest Pain Stated complaint: CHest Pain Time Seen by Provider: 03/31/19 19:08 Mode of Arrival: Ambulatory Source of Information: Patient, Relative, EMS Limitations: No Limitations Description of Symptoms (Recalled from ER Triage Doc. by RN): Pt presents from [place] with c/o chest pain, lethargic. - History of Present Illness HPI narrative: lethargic, anorexic refusing food x 3 days, grossly pyuric urine. - Related Data Home Medications Medication Instructions Recorded Confirmed Acetaminophen [Tylenol 500mg 500 mg PO NEEDED PRN 01/22/19 01/27/19 tablet] Allopurinol [Allopurinol 100mg 100 mg PO DAILY 01/22/19 01/27/19 tablet] Atorvastatin Calcium [Atorvastatin 20 mg PO HS 01/22/19 01/27/19 20mg Tab] Calcitriol [Rocaltrol] 0.25 mcg PO DAILY 01/22/19 01/27/19 Ferrous Sulfate 325 mg PO BID 01/22/19 01/27/19 Furosemide [Lasix 40mg tablet] 40 mg PO DAILY 01/22/19 01/27/19 Levothyroxine Sodium [Synthroid 100 mcg PO DAILY 01/22/19 01/27/19 100mcg (0.1mg) tablet] Metoprolol Tartrate [Lopressor 25 mg PO BID 01/22/19 01/27/19 25mg tablet] Oxybutynin Chloride [Ditropan 5mg 5 mg PO HS 01/22/19 01/27/19 tablet] Pantoprazole Sodium [Protonix 40mg 40 mg PO DAILY 01/22/19 01/27/19 tablet] Rivaroxaban [Xarelto 15mg tablet] 15 mg PO DAILY 01/22/19 01/27/19 Tramadol HCl [Tramadol 50mg 50 mg PO TIDP PRN 01/22/19 01/27/19 Tab] Linagliptin [Tradjenta 5mg tablet] 5 mg PO DAILY 01/26/19 01/27/19 Previous Rx's Medication Instructions Recorded levoFLOXacin [Levaquin 500mg 500 mg PO DAILY #5 tab 01/29/19 tab] Allergies Allergy/AdvReac Type Severity Reaction Status Date / Time No Known Allergies Allergy Verified 03/31/19 18:58 [facility] History - Hepatitis A Screen Drug use history?: No High risk sexual behaviors?: No History of sexually transmitted infection?: No Currently employed?: No Childcare worker?: No Do you have indoor plumbing?: Yes Do you have electricity?: Yes Attestation statement:: This patient has been screened for Hepatitis A risk factors. I have reviewed the patient's past medical history: Yes Medical History: Reports:: Cancer, Diabetes Mellitus Type 2, Hyperlipidemia, Hypertension Denies:: Diabetes Mellitus Type 1, MRSA Other Medical History: Reports: Hypothyroidism Other Surgeries: Yes: Cancer Surgery, Other (craniotomy for tumor removal) Amputation: No Fractures: No Comment: Meningioma removal at several months ago - Social History Smoking Status: Former smoker Alcohol Intake: never Occupational Status: retired Family Hx:: Unable to obtain ROS Obtained: Yes All systems reviewed & no additional complaints - Constitutional Constitutional: Denies chills, Denies fever(s) - Cardiovascular Cardiovascular: Reports chest pain, Reports other (fleeting today) - Respiratory Respiratory: No chest congestion, No cough - Gastrointestinal Gastrointestingal: Denies: abdominal pain - Genitourinary Female Genitourinary: Denies dysuria, Denies flank pain - Musculoskeletal Musculoskeletal: Denies muscle weakness, Denies muscle aches, Denies neck pain, Denies numbness - Integumentary/Breasts Skin/Breast: Denies rash, Denies skin pain - Neurologic Neurologic: Denies convulsions, Denies unsteadiness, Denies dizziness, Denies focal weakness, Reports numbness - Hematologic/Lymphatic Henatologic/Lymphatic: Denies easy bleeding, Denies easy bruising Physical Exam - General General appearance: lethargic, other (appears grossly dehydrated) - Head Head exam: atraumatic, normocephalic, normal inspection - ENT ENT exam: Present: mucous membranes dry - Respiratory Respiratory exam: Present: normal lung sounds bilaterally. Absent: respiratory distress - Cardiovascular Cardiovascular exam: Present: regular rate, normal rhythm. Absent: JVD - Abdominal Exam Abdominal exam: Present: soft. Absent: distention, tenderness, guarding - Extremities Exam Extremities exam: Present: normal inspection, full ROM, normal capillary refill. Absent: tenderness - Back Exam Back exam: Present: normal inspection. Absent: tenderness - Neurological Exam Neurological exam: Present: alert, CN II-XII intact. Absent: oriented X3, normal gait, motor sensory deficit - Psychiatric Psychiatric exam: Present: normal affect, normal mood - Skin Skin exam: Present: warm, dry, intact, normal color
[2019-03-31 19:14] LABS: Bilirubin,Urine Negative (Negative); Blood, Urine 2+ (Negative); Color,Urine YELLOW (Yellow); Glucose,Urine (UA) Negative (Negative); Ketones,Urine TRACE (Negative); Leukocyte Esterase,Urine 3+ (Negative); Protein,Urine 2+ (Negative); Specific Gravity, Urine 1.025 (1.005-1.030); Urobilinogen,Urine 0.2 EU/dl (0.2)
[2019-03-31 19:25] LABS: Basophils # 0.1 K/mm3 (0-0.2); Basophils % 0.7 % (0.1-2.0); Eosinophils # 0.5 K/mm3 (0.0-0.4); Eosinophils % 6.1 % (0.1-12.0); Hematocrit 37.4 % (37.0-47.0); Hemoglobin 11.7 g/dL (12.2-16.2); Lymphocytes # 3.2 K/mm3 (0.7-4.5); Lymphocytes % 38.6 % (10-50); Mean Corpuscular HGB Conc 31.3 g/dL (31.8-35.4); Mean Corpuscular Volume 93.7 fl (81-99); Mean Platelet Volume 9.4 fl (7.4-10.4); Monocytes # 0.6 K/mm3 (0.1-1.0); Neutrophils % 47.6 % (37.0-80.0); Platelet Count 308 K/mm3 (142-424); Red Blood Count 3.99 M/mm3 (4.20-5.40); Red Cell Distribution Width 15.4 % (11.5-17.5); White Blood Count 8.3 K/mm3 (4.8-10.8)
[2019-03-31 19:28] LABS: Appearance,Urine Turbid (Clear)
[2019-03-31 19:38] LABS: WBC,Urine TNTC #/hpf (0-3)
[2019-03-31 19:39] LABS: Bacteria,Urine 4+ /lpf; Squamous Epithelial Cell,Urine Occasional #/hpf (0-5)
[2019-03-31 19:43] LABS: Anion Gap 14.5 mEq/L (5-15); Blood Urea Nitrogen 58 mg/dL (7-18); Carbon Dioxide 25 mmol/L (21.0-32.0); Chloride 102 mmol/L (98-107); Glucose 191 mg/dL (74-106); Sodium 138 mmol/L (136-145)
[2019-04-01 07:43] LABS: Anion Gap 15.3 mEq/L (5-15)
[2019-04-01 07:46] LABS: Basophils # 0.1 K/mm3 (0-0.2); Basophils % 0.7 % (0.1-2.0); Eosinophils # 0.4 K/mm3 (0.0-0.4); Lymphocytes % 35.8 % (10-50); Mean Platelet Volume 11.2 fl (7.4-10.4)
[2019-04-01 07:52] LABS: Eosinophils % 5.4 % (0.1-12.0); Hematocrit 29.7 % (37.0-47.0); Lymphocytes # 2.8 K/mm3 (0.7-4.5); Mean Corpuscular HGB Conc 33.3 g/dL (31.8-35.4); Mean Corpuscular Volume 92.1 fl (81-99); Monocytes # 0.7 K/mm3 (0.1-1.0); Monocytes % 8.6 % (1.7-9.3); Neutrophils # 3.9 K/mm3 (1.8-7.8); Neutrophils % 50.3 % (37.0-80.0); Platelet Count 214 K/mm3 (142-424); Red Blood Count 3.23 M/mm3 (4.20-5.40); Red Cell Distribution Width 15.6 % (11.5-17.5); White Blood Count 7.8 K/mm3 (4.8-10.8)
[2019-04-01 07:56] LABS: Hemoglobin 9.9 g/dL (12.2-16.2)
[2019-04-01 07:58] LABS: Calcium 8.8 mg/dL (8.5-10.1)
--- NOTE | 2019-04-01 08:18 | History & Physical Report ---
*Admission Date: 03/31/19 *Chief complaint: Dehydration/urinary tract infection/acute kidney injury *History of present illness: 78-year-old white female with multiple medical problems including CHF, status post meningioma brain tumor removal, chronic kidney disease and history of recurrent urinary tract infections who was brought to the emergency department because of lethargy and somnolence at the [facility] here in [place] [facility]. In the emergency department was found to be exceedingly dry, creatinine elevati on markedly above her baseline was noted, and she was noted to have purulent urine when catheter was placed. Admitted to hospital for broad-spectrum antibiotics and IV fluids. [facility] History I have reviewed the patient's past medical history: Yes Medical History: Reports:: Diabetes Mellitus Type 2, Hyperlipidemia, Hypertension Denies:: Cancer, Diabetes Mellitus Type 1, MRSA *Have you ever received a pneumonia vaccine?: Yes *Have you received a flu vaccine this season?: Yes (fall 2017) Other Medical History: Reports: Anemia, Hypothyroidism Other Surgeries: Yes: Cancer Surgery, Cholecystectomy, Hysterectomy-Partial, Other (craniotomy for tumor removal) Amputation: No Fractures: No - *Social History Educational Level: Attended High School Smoking Status: Never smoker Alcohol Intake: never *Occupational Status:: retired Housing: [facility] *Travel in the last 8 weeks: None - Psychiatric History Expresses thoughts of harming self/others: None Suicide Plan Description: No Plan Family Hx:: Unable to obtain, Coronary Artery Disease, Diabetes, Heart Attack, Hyperlipidemia, Hypertension, Stroke Review of Systems - Review of Systems Review of systems:: pertinent systems reviewed and negative unless documented below Patient denies pain this morning. States she feels somewhat better. Does wish to eat some breakfast. Otherwise denies shortness of air. Denies diarrhea or constipation. Otherwise review of systems is unreliable given her confusion. - *Neurologic Reports numbness, Denies seizure-like activity, Denies unsteadiness, Denies dizziness, Denies localized weakness Meds Home Medications Medication Instructions Recorded Confirmed Type Acetaminophen [Tylenol 500mg 500 mg PO NEEDED PRN 01/22/19 04/01/19 History tablet] Allopurinol [Allopurinol 100mg 100 mg PO DAILY 01/22/19 04/01/19 History tablet] Atorvastatin Calcium [Atorvastatin 20 mg PO HS 01/22/19 04/01/19 History 20mg Tab] Calcitriol [Rocaltrol] 0.25 mcg PO DAILY 01/22/19 04/01/19 History Ferrous Sulfate 325 mg PO BID 01/22/19 04/01/19 History Furosemide [Lasix 40mg tablet] 20 mg PO DAILY 01/22/19 04/01/19 History Levothyroxine Sodium [Synthroid 100 mcg PO DAILY 01/22/19 04/01/19 History 100mcg (0.1mg) tablet] Metoprolol Tartrate [Lopressor 12.5 mg PO BID 01/22/19 04/01/19 History 25mg tablet] Oxybutynin Chloride [Ditropan 5mg 5 mg PO HS 01/22/19 04/01/19 History tablet] Pantoprazole Sodium [Protonix 40mg 40 mg PO DAILY 01/22/19 04/01/19 History tablet] Rivaroxaban [Xarelto 15mg tablet] 15 mg PO DAILY 01/22/19 04/01/19 History Tramadol HCl [Tramadol 50mg 50 mg PO TIDP PRN 01/22/19 04/01/19 History Tab] Linagliptin [Tradjenta 5mg tablet] 5 mg PO DAILY 01/26/19 04/01/19 History levoFLOXacin [Levaquin 500mg 500 mg PO DAILY #5 tab 01/29/19 04/01/19 Rx tab] Memantine HCl [Namenda] 1 each PO HS 04/01/19 04/01/19 History Mirtazapine 7.5 mg PO HSP PRN 04/01/19 04/01/19 History levETIRAcetam [Levetiracetam] 500 mg PO BID 04/01/19 04/01/19 History Allergies Allergy/AdvReac Type Severity Reaction Status Date / Time No Known Allergies Allergy Verified 03/31/19 18:58 Exam Vital signs and Labs for Last 24 Hours: Temp Pulse Resp BP Pulse Ox 97.9 F 73 17 106/57 L 96 04/01/19 08:00 04/01/19 08:00 04/01/19 08:00 04/01/19 08:00 04/01/19 08:00 Laboratory Results - last 24 hr 03/31/19 18:45: WBC 8.3, RBC 3.99 L, Hgb 11.7 L, Hct 37.4, MCV 93.7, MCH 29.3, MCHC 31.3 L, RDW 15.4, Plt Count 308, MPV 9.4, Neut % (Auto) 47.6, Lymph % (Auto) 38.6, [place] % (Auto) 7.0, Eos % (Auto) 6.1, Baso % (Auto) 0.7, Neut # (Auto) 4.0, Lymph # (Auto) 3.2, [place] # (Auto) 0.6, Eos # (Auto) 0.5 H, Baso # (Auto) 0.1 03/31/19 18:45: Urine Color Yellow, Urine Appearance Turbid, Urine pH 6.0, Ur Specific [place] 1.025, Urine Protein 2+, Urine Glucose (UA) Negative, Urine Ketones Trace, Urine Blood 2+, Urine Nitrate Negative, Urine Bilirubin Negative, Urine Urobilinogen 0.2, Ur Leukocyte Esterase 3+ A, Urine WBC Tntc, Ur Squamous Epith Cells Occasional, Urine Bacteria 4+ 03/31/19 18:47: Sodium 138, Potassium 3.5, Chloride 102, Carbon Dioxide 25, Anion Gap 14.5, BUN 58 H, Creatinine 3.27 H, Estimated Creat Clear 16, Estimated GFR 14 L*, Est GFR ( Amer) 17 L*, Glucose 191 H, Calcium 10.0, Troponin I < 0.02 03/31/19 18:47: Lactate 1.4 04/01/19 06:33: POC Glucose 111 H 04/01/19 06:55: WBC 7.8, RBC 3.23 L, Hgb 9.9 L D, Hct 29.7 L, MCV 92.1, MCH 30.6, MCHC 33.3, RDW 15.6, Plt Count 214 D, MPV 11.2 H, Neut % (Auto) 50.3, Lymph % (Auto) 35.8, [place] % (Auto) 8.6, Eos % (Auto) 5.4, Baso % (Auto) 0.7, [place] # (Auto) 3.9, Lymph # (Auto) 2.8, [place] # (Auto) 0.7, Eos # (Auto) 0.4, Baso # (Auto) 0.1 08/17/19 06:55: Sodium 143, Potassium 3.3 L, Chloride 111 H, Carbon Dioxide 20 L , Anion Gap 15.3 H, BUN 49 H, Creatinine 2.35 H D, Estimated Creat Clear 22, Estimated GFR 20 L, Est GFR ( Amer) 24 L D, Glucose 118 H D, Calcium 8.8 D I & O for Last 24 hours: Intake & Output 03/29/19 03/30/19 03/31/19 04/01/19 11:59 11:59 11:59 11:59 Intake Total 2765 / 2765 Output Total 500 / 500 Balance 2265 / 2265 Weight 149 lb 5 oz Narrative: Patient appears brighter and more responsive than reports from yesterday evening. Still continues to have significantly dry oral mucosa. Lungs have diminished air movement but clear. Abdomen soft, minimal bilateral lower quadrant tenderness. Distal perfusion is good but skin turgor is poor. Heart rate regular with previously noted holosystolic murmur. Able to move extremities but is extremely weak. Assessment and Plan (1) Acute kidney injury Current visit: Yes Status: Acute Category: Medical Code(s): N17.9 - Acute kidney failure, unspecified Significant creatinine elevation. Improved this morning. Continue IV fluids and monitor tomorrow. (2) Dehydration Current visit: Yes Status: Acute Category: Medical Code(s): E86.0 - Dehydration Continue IV fluids. Monitor hydration status (3) UTI (urinary tract infection) Current visit: Yes Status: Acute Category: Medical Code(s): N39.0 - Urinary tract infection, site not specified Await urine and blood culture results. Continue broad-spectrum empiric therapy. (4) Hypokalemia Current visit: No Status: Acute Category: Medical Code(s): E87.6 - Hypokalemia Somewhat improved this morning. (5) Diabetes Current visit: No Status: Chronic Category: Medical Code(s): E11.9 - Type 2 diabetes mellitus without complications Continue sliding scale insulin.
--- NOTE | 2019-04-01 10:40 | Pharmacy Consult Notes ---
[facility] Pharmacy VTE Monitoring - Patient Demographics Admission date: 03/31/19 Report Date: 04/01/19 Time: 10:40 Allergies/Adverse Reactions: Patient Allergies No Known Allergies Allergy (Verified 03/31/19 18:58) Height: 1.65 m Weight: 67.727 kg Patient Problems: Current Active Problems UTI (urinary tract infection) (Acute) Dehydration (Acute) Acute kidney injury (Acute) - VTE Risk Labs: VTE Related Lab Results Hgb 9.9 g/dL (12.2-16.2) L D 04/01/19 06:55 Hct 29.7 % (37.0-47.0) L 04/01/19 06:55 Plt Count 214 K/mm3 (142-424) D 04/01/19 06:55 BUN 49 mg/dL (7-18) H 04/01/19 06:55 Creatinine 2.35 mg/dL (0.55-1.02) H D 04/01/19 06:55 Estimated Creat Clear 22 mL/min (50-200) 04/01/19 06:55 VTE Score: 6 VTE Risk Level: Moderate Risk - Prophylaxis VTE Prophylaxis Ordered?: Yes Types of VTE Prophylaxis: Pharmacological Pharmacologic Type: Other (XARELTO) - VTE Diagnosis Confirmed Treatment or plan recommended: Continue Current Treatment
--- NOTE | 2019-04-01 12:42 | Electrocardiograph Report ---
APPROVED REPORT Exam: Resting ECG HR:88 bpm ECG Measurements Heart Rate 88 AXES OK 170 P -13 QRSd 90 QRS 1 QT 540 T-7 QTc 653 <Conclusion> Sinus rhythm with marked sinus arrhythmia Low voltage QRS Nonspecific ST and T wave abnormality Prolonged QT Abnormal ECG Electronically signed by : Terrence Wells, 04/01/2019 12:41:51
[2019-04-02 06:29] LABS: Basophils % 0.6 % (0.1-2.0); Eosinophils # 0.4 K/mm3 (0.0-0.4); Eosinophils % 6.1 % (0.1-12.0); Hematocrit 31.7 % (37.0-47.0); Hemoglobin 9.9 g/dL (12.2-16.2); Lymphocytes # 1.7 K/mm3 (0.7-4.5); Lymphocytes % 28.8 % (10-50); Mean Corpuscular HGB Conc 31.2 g/dL (31.8-35.4); Mean Corpuscular Volume 95.3 fl (81-99); Mean Platelet Volume 8.9 fl (7.4-10.4); Monocytes # 0.5 K/mm3 (0.1-1.0); Monocytes % 8.2 % (1.7-9.3); Neutrophils # 3.3 K/mm3 (1.8-7.8); Neutrophils % 56.4 % (37.0-80.0); Platelet Count 223 K/mm3 (142-424); Red Blood Count 3.33 M/mm3 (4.20-5.40); Red Cell Distribution Width 15.4 % (11.5-17.5); White Blood Count 5.8 K/mm3 (4.8-10.8)
[2019-04-02 06:48] LABS: Anion Gap 14.8 mEq/L (5-15); Calcium 8.8 mg/dL (8.5-10.1)
--- NOTE | 2019-04-02 07:44 | Progress Note ---
Internal Medicine - PN: Subj *Date: 04/02/19 *Time: 07:42 Interval history: Patient is awake and much more alert. Is disoriented to place and time but no she is in the hospital. Is eating some breakfast. Much better oral intake. Exam Vital signs and Labs for Last 24 Hours: Temp Pulse Resp BP Pulse Ox 98.0 F 77 18 109/67 L 99 04/02/19 04:00 04/02/19 04:00 04/02/19 04:00 04/02/19 04:00 04/02/19 04:00 Laboratory Results - last 24 hr 03/31/19 18:45: Urine Color Yellow, Urine Appearance Turbid, Urine pH 6.0, Ur Specific [place] 1.025, Urine Protein 2+, Urine Glucose (UA) Negative, Urine Ketones Trace, Urine Blood 2+, Urine Nitrate Negative, Urine Bilirubin Negative, Urine Urobilinogen 0.2, Ur Leukocyte Esterase 3+ A, Urine WBC Tntc, Ur Squamous Epith Cells Occasional, Urine Bacteria 4+ 04/01/19 06:55: WBC 7.8, RBC 3.23 L, Hgb 9.9 L D, Hct 29.7 L, MCV 92.1, MCH 30.6, MCHC 33.3, RDW 15.6, Plt Count 214 D, MPV 11.2 H, Neut % (Auto) 50.3, Lymph % (Auto) 35.8, [place] % (Auto) 8.6, Eos % (Auto) 5.4, Baso % (Auto) 0.7, [place] # (Auto) 3.9, Lymph # (Auto) 2.8, [place] # (Auto) 0.7, Eos # (Auto) 0.4, Baso # (Auto) 0.1 04/01/19 06:55: Sodium 143, Potassium 3.3 L, Chloride 111 H, Carbon Dioxide 20 L , Anion Gap 15.3 H, BUN 49 H, Creatinine 2.35 H D, Estimated Creat Clear 22, Estimated GFR 20 L, Est GFR ( Amer) 24 L D, Glucose 118 H D, Calcium 8.8 D 04/01/19 10:58: POC Glucose 107 04/01/19 15:44: POC Glucose 106 04/01/19 20:16: POC Glucose 154 H 04/02/19 05:05: POC Glucose 97 08/18/19 06:22: WBC 5.8 D, RBC 3.33 L, Hgb 9.9 L, Hct 31.7 L, MCV 95.3, MCH 29.8, MCHC 31.2 L, RDW 15.4, Plt Count 223, MPV 8.9, Neut % (Auto) 56.4, Lymph % (Auto) 28.8, [place] % (Auto) 8.2, Eos % (Auto) 6.1, Baso % (Auto) 0.6, Neut # (Auto) 3.3, Lymph # (Auto) 1.7, [place] # (Auto) 0.5, Eos # (Auto) 0.4, Baso # (Auto) 0.0 04/02/19 06:22: Sodium 146 H, Potassium 2.8 L*, Chloride 113 H, Carbon Dioxide 21, Anion Gap 14.8, BUN 33 H D, Creatinine 1.79 H D, Estimated Creat Clear 29, Estimated GFR 28 L, Est GFR ( Amer) 33 L D, Glucose 109 H, Calcium 8.8 I & O for Last 24 hours: Intake & Output 03/30/19 03/31/19 04/01/19 04/02/19 11:59 11:59 11:59 11:59 Intake Total 2765 / 2765 2459 / 2459 Output Total 500 / 500 950 / 950 Balance 2265 / 2265 1509 / 1509 Weight 149 lb 5 oz 153 lb 6 oz Microbiology Reports for the Last 24 Hours: Microbiology 03/31/19 19:15 Blood Blood Culture - Preliminary Gram Positive Cocci 03/31/19 19:15 Blood Blood Culture - Preliminary Gram Positive Cocci 03/31/19 18:45 Urine,Catheterized Urine Culture - Final Klebsiella pneumoniae Narrative: Much more alert. Cooperative. Follows commands. Oropharynx slightly dry but clear. No JVD. Anterior lung laird are clear. Heart rate regular with previously noted murmur. Abdomen soft, minimal bilateral lower quadrant tenderness but improved. Distal perfusion is vastly improved, no edema in hands or feet. Neurologic exam improved as noted above. Assessment and Plan (1) Acute kidney injury Current visit: Yes Status: Acute Category: Medical Code(s): N17.9 - Acute kidney failure, unspecified Improving, creatinine is normalizing this morning (2) Dehydration Current visit: Yes Status: Acute Category: Medical Code(s): E86.0 - Dehydration Improving. (3) UTI (urinary tract infection) Current visit: Yes Status: Resolved Category: Medical Code(s): N39.0 - Urinary tract infection, site not specified Secondary to ESBL positive Klebsiella organism. Discontinue ceftriaxone. Continue Invanz to which is sensitive. (4) Hypokalemia Current visit: No Status: Acute Category: Medical Code(s): E87.6 - Hypokalemia Replace potassium p.o. today. Watch tomorrow. (5) Diabetes Current visit: No Status: Chronic Qualifiers: Diabetes mellitus type: type 2 Diabetes mellitus terminal supervisor insulin use: without terminal supervisor use Diabetes mellitus complication status: without complication Qualified Code(s): E11.9 - Type 2 diabetes mellitus without complications Category: Medical Code(s): E11.9 - Type 2 diabetes mellitus without complications Complicates her care, however has been fairly euglycemic this admission
[2019-04-03 07:04] LABS: Anion Gap 16.4 mEq/L (5-15); Calcium 9.1 mg/dL (8.5-10.1)
[2019-04-03 07:06] LABS: Hematocrit 33.9 % (37.0-47.0); Hemoglobin 10.5 g/dL (12.2-16.2); Mean Platelet Volume 9.9 fl (7.4-10.4); Platelet Count 225 K/mm3 (142-424); Red Blood Count 3.53 M/mm3 (4.20-5.40); Red Cell Distribution Width 15.6 % (11.5-17.5); White Blood Count 5.7 K/mm3 (4.8-10.8)
[2019-04-03 07:07] LABS: Basophils # 0.2 K/mm3 (0-0.2); Basophils % 0.4 % (0.1-2.0); Eosinophils # 0.3 K/mm3 (0.0-0.4); Eosinophils % 5.1 % (0.1-12.0); Lymphocytes # 1.8 K/mm3 (0.7-4.5); Lymphocytes % 34.5 % (10-50); Monocytes # 0.5 K/mm3 (0.1-1.0); Monocytes % 8.8 % (1.7-9.3); Neutrophils # 2.9 K/mm3 (1.8-7.8); Neutrophils % 51.3 % (37.0-80.0)
--- NOTE | 2019-04-03 08:28 | Discharge Summary ---
General - General Admission date:: 03/31/19 Discharge date: 04/03/19 HPI HPI: 78-year-old white female with multiple medical problems including CHF, status post meningioma brain tumor removal, chronic kidney disease and history of recurrent urinary tract infections who was brought to the emergency department because of lethargy and somnolence at the long-term here in [facility]. In the emergency department was found to be exceedingly dry, creatinine elevation markedly above her baseline was noted, and she was noted to have purulent urine when catheter was placed. Admitted to hospital for broad-spectrum antibiotics and IV fluids. Hospital Course Hospital Course: Patient was admitted, placed on intravenous antibiotics and urine and blood cultures were obtained. Urine culture showed ESBL positive Klebsiella, sensitive to Invanz and this therapy was continued. Blood cultures showed staph epidermidis which was deemed to be a contaminant. She responded very nicely to IV antibiotics and was quickly back to her baseline in regards to eating and orientation. Her acute kidney injury responded very nicely to IV fluids and improved with improving creatinines to actually better than her baseline with this morning's level being 1.54. Urine in her Kelly catheter cleared very nicely. PICC line was placed yesterday morning for ongoing IV Invanz at her long-term care facility, but unfortunately she pulled this out inadvertently through the night last night. Plan will be to get this replaced today, if this is successful she will be discharged back to her long-term for 7 more days of intravenous Invanz, 1 g daily. She will hold her diuretics for a couple of days until we see her on her long-term rounds on Wednesday. She will need to have more attention to fluid administration at the long-term and oral fluids will need to be encouraged. Objective Vital signs: Temp Pulse Resp BP Pulse Ox 97.5 F L 86 16 128/74 100 04/03/19 05:30 04/03/19 05:30 04/03/19 05:30 04/03/19 05:30 04/03/19 05:30 Narrative: Patient is alert, more pleasant. Talkative, responds to commands. Lungs are clear in the anterior laird. Heart rate regular. Abdomen soft and nontender. Oropharynx clear, moist. No JVD noted. Distal perfusion is good, patient wearing compression stockings. Kelly catheter is draining clear yellow urine. Results Labs on day of discharge: Labs from last 24 hours 04/03/19 04/03/19 04/03/19 06:14 05:51 05:51 WBC 5.7 RBC 3.53 L Hgb 10.5 L Hct 33.9 L MCV 96.0 MCH 29.5 MCHC 31.0 L RDW 15.6 Plt Count 225 MPV 9.9 Neut % (Auto) 51.3 Lymph % (Auto) 34.5 [place] % (Auto) 8.8 Eos % (Auto) 5.1 Baso % (Auto) 0.4 Neut # (Auto) 2.9 Lymph # (Auto) 1.8 [place] # (Auto) 0.5 Eos # (Auto) 0.3 Baso # (Auto) 0.2 Sodium 146 H Potassium 3.4 L D Chloride 114 H Carbon Dioxide 19 L Anion Gap 16.4 H BUN 23 H D Creatinine 1.54 H Estimated Creat Clear 35 Estimated GFR 33 L Est GFR ( Amer) 40 L D Glucose 154 H D POC Glucose 199 H Calcium 9.1 04/02/19 04/02/19 04/02/19 21:31 17:14 11:15 WBC RBC Hgb Hct MCV MCH MCHC RDW Plt Count MPV Neut % (Auto) Lymph % (Auto) [place] % (Auto) Eos % (Auto) Baso % (Auto) Neut # (Auto) Lymph # (Auto) [place] # (Auto) Eos # (Auto) Baso # (Auto) Sodium Potassium Chloride Carbon Dioxide Anion Gap BUN Creatinine Estimated Creat Clear Estimated GFR Est GFR ( Amer) Glucose POC Glucose 190 H 162 H 127 H Calcium Preliminary micro results at discharge 03/31/19 19:15 Blood Culture - Preliminary Blood Gram Positive Cocci DS: Diagnosis - Discharge Diagnosis (1) Acute kidney injury Status: Resolved (2) Dehydration Status: Resolved (3) UTI (urinary tract infection) Status: Acute (4) Hypokalemia Status: Resolved (5) Diabetes Status: Chronic Discharge Plan - Patient Discharge Instructions ACTIVITY: Continue current activity DIET: continue same diet Additional Instructions: Push p.o. fluids Patient Instructions: Urinary Tract Infection, DI for Dehydration -- Adult, DI for Urinary Tract Infection (UTI), How to Prevent Falls, Central Line-Associated Bloodstream Infections, DI for Multiple Drug-resistant Organism (MDRO) Infection, Extended Spectrum Beta-Lactamase Infection, DI for Extended Spectrum Beta-Lactamase Infection - Follow up Plan Follow up with: Denise Oviedo APRN [Nurse Practitioner] - 04/04/19 Disposition: Xfer SNF Home Medications: Home Medications Medication Instructions Recorded Confirmed Type Acetaminophen [Tylenol 500mg 1,000 mg PO Q6HP PRN 01/22/19 04/01/19 History tablet] Allopurinol [Allopurinol 100mg 200 mg PO DAILY 01/22/19 04/01/19 History tablet] Atorvastatin Calcium [Atorvastatin 20 mg PO HS 01/22/19 04/01/19 History 20mg Tab] Calcitriol [Rocaltrol] 0.25 mcg PO DAILY 01/22/19 04/01/19 History Ferrous Sulfate 325 mg PO BID 01/22/19 04/01/19 History Levothyroxine Sodium [Synthroid 100 mcg PO DAILY 01/22/19 04/01/19 History 100mcg (0.1mg) tablet] Metoprolol Tartrate [Lopressor 12.5 mg PO BID 01/22/19 04/01/19 History 25mg tablet] Pantoprazole Sodium [Protonix 40mg 40 mg PO DAILY 01/22/19 04/01/19 History tablet] Rivaroxaban [Xarelto 15mg tablet] 15 mg PO DAILY 01/22/19 04/01/19 History Linagliptin [Tradjenta 5mg tablet] 5 mg PO DAILY 01/26/19 04/01/19 History Memantine HCl [Namenda] 1 each PO HS 04/01/19 04/01/19 History Mirtazapine 7.5 mg PO HS 04/01/19 04/01/19 History levETIRAcetam [Levetiracetam] 500 mg PO BID 04/01/19 04/01/19 History Ertapenem Sodium [Invanz 1gm Vial] 1 gm IV DAILY #7 vial 04/03/19 Rx Prescriptions/Medication Reconciliation: New Ertapenem Sodium [Invanz 1gm Vial] 1 gm IV DAILY #7 vial Continued Metoprolol Tartrate [Lopressor 25mg tablet] 12.5 mg PO BID Allopurinol [Allopurinol 100mg tablet] 200 mg PO DAILY Rivaroxaban [Xarelto 15mg tablet] 15 mg PO DAILY Levothyroxine Sodium [Synthroid 100mcg (0.1mg) tablet] 100 mcg PO DAILY Ferrous Sulfate 325 mg PO BID Calcitriol [Rocaltrol] 0.25 mcg PO DAILY Acetaminophen [Tylenol 500mg tablet] 1,000 mg PO Q6HP PRN PRN Reason: pain Memantine HCl [Namenda] 1 each PO HS levETIRAcetam [Levetiracetam] 500 mg PO BID Pantoprazole Sodium [Protonix 40mg tablet] 40 mg PO DAILY Atorvastatin Calcium [Atorvastatin 20mg Tab] 20 mg PO HS Linagliptin [Tradjenta 5mg tablet] 5 mg PO DAILY Mirtazapine 7.5 mg PO HS - Problem Reconciliation Problems Reviewed?: Yes
== END 2019-04-03 11:08 | DRG 690 ==
LOC: 2ND 18:50 → ER 18:50 → OBSVTOIN 20:47 → 2ND 20:48
PROVIDERS: ADMIT Internal Medicine Adolescent Medicine; ATTEND Internal Medicine Adolescent Medicine
CPT/HCPCS: 36415; 36569; 70450; 71010; 71045; 74176; 80048; 81001; 82962; 83605; 84484; 85025; 87040; 87077; 87086; 87088; 87186; 93005; 96365; 96367; 99285; C1751; J1335

== ENCOUNTER 2019-04-11 18:49 | Observation (INO) ==
--- NOTE | 2019-04-11 20:01 | Emergency Department Note ---
ED Disposition Clinical Impression: Renal insufficiency, Encephalomalacia Cerebrovascular accident Qualifiers: CVA mechanism: unspecified Qualified Code(s): I63.9 - Cerebral infarction, unspecified Disposition: Admitted as Observation Condition on Discharge: Serious Referrals: Terrence Wells MD [Primary Care Provider] - - Critical Care Critical Care Time: No Attestation: On 04/11/19, the high probability of a clinically significant, sudden or life threatening deterioration of the following system(s) required my full and direct attention, intervention and personal management. The time I documented below is in addition to time spent performing reported procedures but includes the following listed in this critical care notation. Medical Decision Making - Medical Records Medical records reviewed: Yes: I reviewed the patient's medical records. - [place] Inquiry Pt receiving controlled substance: No Vital Signs: 04/11/19 18:50 04/11/19 20:20 Temperature 97.9 F 96.9 F L Temperature Source Oral Rectal Pulse Rate [Right Radial] 92 H Respiratory Rate 18 18 Blood Pressure [Right Arm] 120/87 123/71 Blood Pressure Mean [Right Arm] 98 88 Blood Pressure Source [Right Arm] Automatic Cuff Blood Pressure Position [Right Arm] Sitting 02 Sat by Pulse Oximetry 99 Oxygen Delivery Method Room Air - Lab Data Lab results reviewed: Yes: I reviewed the patient's lab results. Lab Results 04/11/19 18:53: POC Glucose 173 H 04/11/19 20:10: WBC 9.8, RBC 3.25 L, Hgb 9.6 L, Hct 31.1 L, MCV 95.6, MCH 29.5, MCHC 30.9 L, RDW 15.9, Plt Count 194, MPV 8.6, Neut % (Auto) 61.4, Lymph % (Auto) 29.3, [place] % (Auto) 3.7, Eos % (Auto) 5.2, Baso % (Auto) 0.4, Neut # (Auto) 6.0, Lymph # (Auto) 2.9, [place] # (Auto) 0.4, Eos # (Auto) 0.5 H, Baso # (Auto) 0.0 04/11/19 20:10: PT 12.1 H, INR 1.17 H, APTT 35.7 H 04/11/19 20:10: Sodium 142, Potassium 3.9, Chloride 111 H, Carbon Dioxide 21, Anion Gap 13.9, BUN 14, Creatinine 1.42 H, Estimated Creat Clear 41, Estimated GFR 36 L, Est GFR ( Amer) 44 L, Glucose 174 H, Calcium 9.4, Triglycerides 59, Cholesterol 67 L, LDL Cholesterol 11, VLDL Cholesterol 12, HDL Cholesterol 44, Cholesterol/HDL Ratio 1.5 04/11/19 20:35: Urine Color Yellow, Urine Appearance Clear, Urine pH 5.5, Ur Specific [place] 1.025, Urine Protein Negative, Urine Glucose (UA) Negative, Urine Ketones Negative, Urine Blood Negative, Urine Nitrate Negative, Urine Bilirubin Negative, Urine Urobilinogen 0.2, Ur Leukocyte Esterase Trace, Urine WBC 10-20, Ur Squamous Epith Cells 10-20, Urine Bacteria 1+ Result diagrams: 04/11/19 20:10 04/11/19 20:10 Orders (Tests/Meds): ED MEDICATIONS Generic Name Dose Route Start Last Admin Trade Name Freq PRN Reason Stop Dose Admin Sodium Chloride 1,000 mls @ 999 mls/hr 04/11/19 19:15 04/11/19 21:04 Sod Chlor 0.9% 1000ml Bag IV 04/11/19 20:15 999 mls/hr .[id number] MELINA Administration ORDERS Category Date Time Status Liver Panel Stat Lab 04/11/19 20:10 Received Trop I [Troponin I] Stat Lab 04/11/19 20:10 Received Urine Culture Stat Micro 04/11/19 20:35 Received - CT Data CT Scan: Head Time Received: 19:[address] Reviewed: Yes: I have viewed the radiologist's interpretation Preliminary Findings: Normal/NAD - ECG Data Tracing #1 Normal Sinus Rhythm: Yes Ischemic changes: non-specific ST-T wave changes ECG compared to prior tracings: there are no significant changes - Physician Consults Physician Consulted: claritza Reason -: Admission Altered Mental Status HPI - General Chief Complaint: Neuro Symptoms/Deficit Stated Complaint: long term reports slurred speech Time Seen by Provider: 04/11/19 20:00 Mode of Arrival: EMS Source of Information: Patient, Relative, EMS, Medical Record Limitations: No Limitations Description of Symptoms (Recalled from ER Triage Doc. by RN): per long term report pt began having slurred speech approx 1 hour. Pt is alert, oriented x3 upon arrival to ED. Pt has no complaints, denies presence of pain, states she did not sleep well lastnight. pt recently finished invanz for UTI, pt has picc in LUE in place. Speech not noted to be slurred, somewhat mumbled in nature. Pts daughter reports he speech is not as clear as her normal. - History of Present Illness HPI narrative: pt unable to give hx but daughter reports had slurred speech earlier today and again this pm - pt confused with recent iv treatment for uti - no fever or trauma reported MD complaint: altered mental status Onset (ago): hour(s) Timing confirmed by: family member Severity: moderate Consistency of symptoms: waxing and waning Associated symptoms: denies other symptoms - Related Data Home Medications Medication Instructions Recorded Confirmed Acetaminophen [Tylenol 500mg 1,000 mg PO Q6HP PRN 01/22/19 04/11/19 tablet] Allopurinol [Allopurinol 100mg 200 mg PO DAILY 01/22/19 04/11/19 tablet] Atorvastatin Calcium [Atorvastatin 20 mg PO HS 01/22/19 04/11/19 20mg Tab] Calcitriol [Rocaltrol] 0.25 mcg PO DAILY 01/22/19 04/11/19 Ferrous Sulfate 325 mg PO BID 01/22/19 04/11/19 Levothyroxine Sodium [Synthroid 100 mcg PO DAILY 01/22/19 04/11/19 100mcg (0.1mg) tablet] Metoprolol Tartrate [Lopressor 12.5 mg PO BID 01/22/19 04/11/19 25mg tablet] Pantoprazole Sodium [Protonix 40mg 40 mg PO DAILY 01/22/19 04/11/19 tablet] Rivaroxaban [Xarelto 15mg tablet] 15 mg PO DAILY 01/22/19 04/11/19 Linagliptin [Tradjenta 5mg tablet] 5 mg PO DAILY 01/26/19 04/11/19 Memantine HCl [Namenda] 1 each PO HS 04/01/19 04/11/19 Mirtazapine 7.5 mg PO HS 04/01/19 04/11/19 levETIRAcetam [Levetiracetam] 500 mg PO BID 04/01/19 04/11/19 KCl 10mEq/100ml [Potassium 20 meq PO DAILY 04/11/19 04/11/19 Chloride 10mEq/100mL IVPB] Allergies Allergy/AdvReac Type Severity Reaction Status Date / Time No Known Allergies Allergy Verified 03/31/19 18:58 [facility] History - Hepatitis A Screen Drug use history?: No High risk sexual behaviors?: No History of sexually transmitted infection?: No Currently employed?: No Childcare worker?: No Do you have indoor plumbing?: Yes Do you have electricity?: Yes Attestation statement:: This patient has been screened for Hepatitis A risk factors. I have reviewed the patient's past medical history: Yes Medical History: Reports:: Cancer (neoplasm of brain), Diabetes Mellitus Type 2, Hyperlipidemia, Hypertension Denies:: Diabetes Mellitus Type 1, MRSA Other Medical History: Reports: Anemia, Hypothyroidism Other Surgeries: Yes: Cancer Surgery, Cholecystectomy, Hysterectomy-Partial, Other (craniotomy for tumor removal) Amputation: No Fractures: No Comment: Meningioma removal at several months ago - Social History Smoking Status: Never smoker Alcohol Intake: never Occupational Status: retired Housing: long term Family Hx:: Unable to obtain, Coronary Artery Disease, Diabetes, Heart Attack, Hyperlipidemia, Hypertension, Stroke ROS Obtained: Yes All systems reviewed & no additional complaints - Constitutional Constitutional: Denies fever(s) - Eyes Eyes: Denies change in vision - Cardiovascular Cardiovascular: Denies chest pain - Respiratory Respiratory: No cough - Gastrointestinal Gastrointestingal: Denies: vomiting - Genitourinary Female Genitourinary: Denies hematuria - Musculoskeletal Musculoskeletal: Denies joint pain - Integumentary/Breasts Skin/Breast: Denies rash - Neurologic Neurologic: Reports as per HPI, Reports abnormal speech, Denies focal weakness, Denies seizure-like activity Physical Exam - General General appearance: alert - Head Head exam: normocephalic - Eye Eye exam: Present: PERRL, EOMI. Absent: scleral icterus - ENT ENT exam: Present: mucous membranes dry - Neck Neck exam: Present: trachea midline - Respiratory Respiratory exam: Present: other (dec bs bilat ). Absent: respiratory distress - Cardiovascular Cardiovascular exam: Present: irregular rhythm, systolic murmur, +S4 - Abdominal Exam Abdominal exam: Present: soft - Extremities Exam Extremities exam: Present: pedal edema. Absent: calf tenderness - Neurological Exam Neurological exam: Present: alert, CN II-XII intact. Absent: other (gcs=14 and no posturing - oriented to person ) - Skin Skin exam: Present: intact
[2019-04-11 20:25] LABS: Basophils % 0.4 % (0.1-2.0); Eosinophils # 0.5 K/mm3 (0.0-0.4); Eosinophils % 5.2 % (0.1-12.0); Hematocrit 31.1 % (37.0-47.0); Hemoglobin 9.6 g/dL (12.2-16.2); Lymphocytes # 2.9 K/mm3 (0.7-4.5); Lymphocytes % 29.3 % (10-50); Mean Corpuscular HGB Conc 30.9 g/dL (31.8-35.4); Mean Corpuscular Volume 95.6 fl (81-99); Mean Platelet Volume 8.6 fl (7.4-10.4); Monocytes # 0.4 K/mm3 (0.1-1.0); Monocytes % 3.7 % (1.7-9.3); Neutrophils % 61.4 % (37.0-80.0); Platelet Count 194 K/mm3 (142-424); Red Blood Count 3.25 M/mm3 (4.20-5.40); Red Cell Distribution Width 15.9 % (11.5-17.5); White Blood Count 9.8 K/mm3 (4.8-10.8)
[2019-04-11 20:35] LABS: Anion Gap 13.9 mEq/L (5-15); Calcium 9.4 mg/dL (8.5-10.1); Chol/HDL Ratio 1.5 (1-3.5)
[2019-04-11 20:41] LABS: INR 1.17 (0.9-1.1); Prothrombin Time 12.1 seconds (9.4-11.8)
[2019-04-11 20:42] LABS: Microscopic, Urine URINE MICROSCOPIC (MICROSCOPIC)
[2019-04-11 20:42] LABS: Activated Partial Thrombo Time 35.7 seconds (23.6-34.0)
[2019-04-11 20:45] LABS: Appearance,Urine CLEAR (Clear); Bilirubin,Urine Negative (Negative); Blood, Urine Negative (Negative); Color,Urine YELLOW (Yellow); Glucose,Urine (UA) Negative (Negative); Ketones,Urine Negative (Negative); Leukocyte Esterase,Urine TRACE (Negative); PH,Urine 5.5 (5.0-8.5); Protein,Urine Negative (Negative); Specific Gravity, Urine 1.025 (1.005-1.030); Urobilinogen,Urine 0.2 EU/dl (0.2)
[2019-04-11 21:06] LABS: Bacteria,Urine 1+ /lpf
[2019-04-11 21:38] LABS: Alanine Aminotransferase 10 U/L (12-78); Alkaline Phosphatase 138 U/L (46-116); Aspartate Amino Transferase 18 U/L (15-37); Bilirubin,Direct 0.1 mg/dL (0.0-0.2); Bilirubin,Indirect 0.2 mg/dL (0.0-0.9); Bilirubin,Total 0.3 mg/dL (0.2-1.0); Total Protein,Serum 5.5 gm/dL (6.4-8.2)
[2019-04-12 06:31] LABS: Basophils % 0.3 % (0.1-2.0); Eosinophils # 0.5 K/mm3 (0.0-0.4); Eosinophils % 6.8 % (0.1-12.0); Hematocrit 28.1 % (37.0-47.0); Hemoglobin 8.7 g/dL (12.2-16.2); Lymphocytes # 2.1 K/mm3 (0.7-4.5); Lymphocytes % 31.4 % (10-50); Mean Corpuscular Volume 95.3 fl (81-99); Mean Platelet Volume 8.3 fl (7.4-10.4); Monocytes # 0.4 K/mm3 (0.1-1.0); Monocytes % 6.2 % (1.7-9.3); Neutrophils # 3.8 K/mm3 (1.8-7.8); Neutrophils % 55.3 % (37.0-80.0); Platelet Count 172 K/mm3 (142-424); Red Blood Count 2.94 M/mm3 (4.20-5.40); Red Cell Distribution Width 15.9 % (11.5-17.5); White Blood Count 6.8 K/mm3 (4.8-10.8)
[2019-04-12 06:47] LABS: Anion Gap 12.6 mEq/L (5-15); Calcium 9.2 mg/dL (8.5-10.1)
--- NOTE | 2019-04-12 07:16 | Pharmacy Consult Notes ---
[facility] VTE Monitoring - Patient Demographics Admission date: 04/12/19 Report Date: 04/12/19 Time: 07:15 Allergies/Adverse Reactions: Patient Allergies No Known Allergies Allergy (Verified 03/31/19 18:58) Height: 1.73 m Weight: 70.335 kg Patient Problems: Current Active Problems Renal insufficiency (Chronic) Encephalomalacia (Chronic) Cerebrovascular accident (Acute) - VTE Risk Labs: VTE Related Lab Results Hgb 8.7 g/dL (12.2-16.2) L 04/12/19 05:26 Hct 28.1 % (37.0-47.0) L 04/12/19 05:26 Plt Count 172 K/mm3 (142-424) 04/12/19 05:26 PT 12.1 seconds (9.4-11.8) H 04/11/19 20:10 INR 1.17 (0.9-1.1) H 04/11/19 20:10 APTT 35.7 seconds (23.6-34.0) H 04/11/19 20:10 BUN 12 mg/dL (7-18) 04/12/19 05:26 Creatinine 1.25 mg/dL (0.55-1.02) H 04/12/19 05:26 Estimated Creat Clear 43 mL/min (50-200) 04/12/19 05:26 Was VTE Risk Assessment Performed: Yes VTE Score: 6 VTE Risk Level: Moderate Risk Clinical Trial Participant: No - Prophylaxis VTE Prophylaxis Ordered?: Yes Types of VTE Prophylaxis: TEDS Knee High, Pharmacological Pharmacologic Type: Other (XARELTO)
--- NOTE | 2019-04-12 08:08 | H&P/Discharge Summary ---
General - General Admission date:: 04/11/19 Discharge date: 04/12/19 *Admission Date: 04/12/19 *Chief complaint: speech slurred *History of present illness: 78-year-old white female[facility] of [facility], hallucinatory activity and resection of brain mass in November [address] [facility], who is been left with a left- sided hemiparesis and some speech deficits. Her daughter became concerned yesterday because of a possible worsening of her speech slurring and brought her to the emergency department, concerned about stroke. CT scan in the ER showed no changes over her chronic changes, she was admitted overnight for further neurologic evaluation and neuro checks. Of note, patient's recently undergone cystoscopy treatment for UTI. Urine in the ER was clear. White count was also normal. [facility] History I have reviewed the patient's past medical history: Yes Medical History: Reports:: Cancer (neoplasm of brain), Congestive Heart Failure, Diabetes Mellitus Type 2, Hyperlipidemia, Hypertension Denies:: Diabetes Mellitus Type 1, MRSA *Have you ever received a pneumonia vaccine?: No *Have you received a flu vaccine this season?: Yes Other Medical History: Reports: Anemia, Hypothyroidism Other Surgeries: Yes: Cancer Surgery, Cholecystectomy, Hysterectomy-Partial, Other (craniotomy for tumor removal) Amputation: No Fractures: No - *Social History Educational Level: Completed High School Smoking Status: Never smoker Alcohol Intake: never *Occupational Status:: retired Housing: [facility] Household Members: other *Travel in the last 8 weeks: None - Psychiatric History Expresses thoughts of harming self/others: None Suicide Plan Description: No Plan Family Hx:: Coronary Artery Disease, Diabetes, Heart Attack, Hyperlipidemia, Hypertension, Stroke Review of Systems - Review of Systems Review of systems:: unable to obtain Patient this morning complains of no pain. Complains of no headache. Otherwise review of systems unobtainable secondary to communication and cognitive deficits. - *Neurologic Reports abnormal speech, Denies localized weakness, Denies seizure-like activity Exam Vital signs and Labs for Last 24 Hours: Temp Pulse Resp BP Pulse Ox 98.0 F 84 18 110/53 L 92 L 04/12/19 08:00 04/12/19 08:00 04/12/19 08:00 04/12/19 08:00 04/12/19 08:00 Laboratory Results - last 24 hr 04/11/19 18:53: POC Glucose 173 H 04/11/19 20:10: WBC 9.8, RBC 3.25 L, Hgb 9.6 L, Hct 31.1 L, MCV 95.6, MCH 29.5, MCHC 30.9 L, RDW 15.9, Plt Count 194, MPV 8.6, Neut % (Auto) 61.4, Lymph % (Auto) 29.3, [place] % (Auto) 3.7, Eos % (Auto) 5.2, Baso % (Auto) 0.4, Neut # (Auto) 6.0, Lymph # (Auto) 2.9, [place] # (Auto) 0.4, Eos # (Auto) 0.5 H, Baso # (Auto) 0.0 04/11/19 20:10: PT 12.1 H, INR 1.17 H, APTT 35.7 H 04/11/19 20:10: Sodium 142, Potassium 3.9, Chloride 111 H, Carbon Dioxide 21, Anion Gap 13.9, BUN 14, Creatinine 1.42 H, Estimated Creat Clear 41, Estimated GFR 36 L, Est GFR ( Amer) 44 L, Glucose 174 H, Calcium 9.4, Triglycerides 59, Cholesterol 67 L, LDL Cholesterol 11, VLDL Cholesterol 12, HDL Cholesterol 44, Cholesterol/HDL Ratio 1.5 04/11/19 20:10: Total Bilirubin 0.3, Direct Bilirubin 0.1, Indirect Bilirubin 0.2, AST 18, ALT 10 L, Alkaline Phosphatase 138 H, Troponin I < 0.02, Total Protein 5.5 L, Albumin 2.0 L 04/11/19 20:35: Urine Color Yellow, Urine Appearance Clear, Urine pH 5.5, Ur Specific Shushan 1.025, Urine Protein Negative, Urine Glucose (UA) Negative, Urine Ketones Negative, Urine Blood Negative, Urine Nitrate Negative, Urine Bilirubin Negative, Urine Urobilinogen 0.2, Ur Leukocyte Esterase Trace, Urine WBC 10-20, Ur Squamous Epith Cells 10-20, Urine Bacteria 1+ 04/12/19 00:40: Troponin I < 0.02 04/12/19 03:47: Troponin I < 0.02 04/12/19 05:26: WBC 6.8 D, RBC 2.94 L, Hgb 8.7 L, Hct 28.1 L, MCV 95.3, MCH 29.5, MCHC 31.0 L, RDW 15.9, Plt Count 172, MPV 8.3, Neut % (Auto) 55.3, Lymph % (Auto) 31.4, [place] % (Auto) 6.2, Eos % (Auto) 6.8, Baso % (Auto) 0.3, Neut # (Auto) 3.8, Lymph # (Auto) 2.1, [place] # (Auto) 0.4, Eos # (Auto) 0.5 H, Baso # (Auto) 0.0 04/12/19 05:26: Sodium 145, Potassium 3.6, Chloride 115 H, Carbon Dioxide 21, Anion Gap 12.6, BUN 12, Creatinine 1.25 H, Estimated Creat Clear 43, Estimated GFR 42 L, Est GFR ( Amer) 50 L, Glucose 107 H D, Calcium 9.2 I & O for Last 24 hours: Intake & Output 04/09/19 04/10/19 04/11/19 04/12/19 11:59 11:59 11:59 11:59 Intake Total 1379 / 1379 Balance 1379 / 1379 Weight 155 lb 1 oz Narrative: Patient is pleasant, talkative, her speech is understandable with some difficulty. It seems to be at her baseline from my previous exams at the [facility]. Heart rate regular with ectopic beats. Anterior lung laird are clear, abdomen soft. Dense left-sided hemiparesis but is able to move her arm and leg somewhat. No edema except for 1+ edema in the left meng. Skin is clear with no breakdown. Oropharynx clear. Hospital Course Hospital Course: Patient was admitted no further neurologic changes were noted. Patient really is at her baseline from my exam. I talked about the case with her daughter. Recommended sending back patient to [facility] for continued observation. We will obviously follow cultures that were done here to make sure we do not have a recurrent UTI, her PICC line will remain in place just in case we need to access this for more IV antibiotics given her history of resistant UTI. If speech continues to be slurred intermittently would consider outpatient MRI late next week. Daughter is agreeable with this plan. Results Labs on day of discharge: Labs from last 24 hours 04/12/19 04/12/19 04/12/19 05:26 05:26 03:47 WBC 6.8 D RBC 2.94 L Hgb 8.7 L Hct 28.1 L MCV 95.3 MCH 29.5 MCHC 31.0 L RDW 15.9 Plt Count 172 MPV 8.3 Neut % (Auto) 55.3 Lymph % (Auto) 31.4 [place] % (Auto) 6.2 Eos % (Auto) 6.8 Baso % (Auto) 0.3 Neut # (Auto) 3.8 Lymph # (Auto) 2.1 [place] # (Auto) 0.4 Eos # (Auto) 0.5 H Baso # (Auto) 0.0 PT INR APTT Sodium 145 Potassium 3.6 Chloride 115 H Carbon Dioxide 21 Anion Gap 12.6 BUN 12 Creatinine 1.25 H Estimated Creat Clear 43 Estimated GFR 42 L Est GFR ( Amer) 50 L Glucose 107 H D POC Glucose Calcium 9.2 Total Bilirubin Direct Bilirubin Indirect Bilirubin AST ALT Alkaline Phosphatase Troponin I < 0.02 Total Protein Albumin Triglycerides Cholesterol LDL Cholesterol VLDL Cholesterol HDL Cholesterol Cholesterol/HDL Ratio Urine Color Urine Appearance Urine pH Ur Specific Shushan Urine Protein Urine Glucose (UA) Urine Ketones Urine Blood Urine Nitrate Urine Bilirubin Urine Urobilinogen Ur Leukocyte Esterase Urine WBC Ur Squamous Epith Cells Urine Bacteria 04/12/19 04/11/19 04/11/19 00:40 20:35 20:10 WBC RBC Hgb Hct MCV MCH MCHC RDW Plt Count MPV Neut % (Auto) Lymph % (Auto) [place] % (Auto) Eos % (Auto) Baso % (Auto) Neut # (Auto) Lymph # (Auto) [place] # (Auto) Eos # (Auto) Baso # (Auto) PT INR APTT Sodium Potassium Chloride Carbon Dioxide Anion Gap BUN Creatinine Estimated Creat Clear Estimated GFR Est GFR ( Amer) Glucose POC Glucose Calcium Total Bilirubin 0.3 Direct Bilirubin 0.1 Indirect Bilirubin 0.2 AST 18 ALT 10 L Alkaline Phosphatase 138 H Troponin I < 0.02 < 0.02 Total Protein 5.5 L Albumin 2.0 L Triglycerides Cholesterol LDL Cholesterol VLDL Cholesterol HDL Cholesterol Cholesterol/HDL Ratio Urine Color Yellow Urine Appearance Clear Urine pH 5.5 Ur Specific Shushan 1.025 Urine Protein Negative Urine Glucose (UA) Negative Urine Ketones Negative Urine Blood Negative Urine Nitrate Negative Urine Bilirubin Negative Urine Urobilinogen 0.2 Ur Leukocyte Esterase Trace Urine WBC 10-20 Ur Squamous Epith Cells 10-20 Urine Bacteria 1+ 04/11/19 04/11/19 04/11/19 20:10 20:10 20:10 WBC 9.8 RBC 3.25 L Hgb 9.6 L Hct 31.1 L MCV 95.6 MCH 29.5 MCHC 30.9 L RDW 15.9 Plt Count 194 MPV 8.6 Neut % (Auto) 61.4 Lymph % (Auto) 29.3 [place] % (Auto) 3.7 Eos % (Auto) 5.2 Baso % (Auto) 0.4 Neut # (Auto) 6.0 Lymph # (Auto) 2.9 [place] # (Auto) 0.4 Eos # (Auto) 0.5 H Baso # (Auto) 0.0 PT 12.1 H INR 1.17 H APTT 35.7 H Sodium 142 Potassium 3.9 Chloride 111 H Carbon Dioxide 21 Anion Gap 13.9 BUN 14 Creatinine 1.42 H Estimated Creat Clear 41 Estimated GFR 36 L Est GFR ( Amer) 44 L Glucose 174 H POC Glucose Calcium 9.4 Total Bilirubin Direct Bilirubin Indirect Bilirubin AST ALT Alkaline Phosphatase Troponin I Total Protein Albumin Triglycerides 59 Cholesterol 67 L LDL Cholesterol 11 VLDL Cholesterol 12 HDL Cholesterol 44 Cholesterol/HDL Ratio 1.5 Urine Color Urine Appearance Urine pH Ur Specific Shushan Urine Protein Urine Glucose (UA) Urine Ketones Urine Blood Urine Nitrate Urine Bilirubin Urine Urobilinogen Ur Leukocyte Esterase Urine WBC Ur Squamous Epith Cells Urine Bacteria 04/11/19 18:53 WBC RBC Hgb Hct MCV MCH MCHC RDW Plt Count MPV Neut % (Auto) Lymph % (Auto) [place] % (Auto) Eos % (Auto) Baso % (Auto) Neut # (Auto) Lymph # (Auto) [place] # (Auto) Eos # (Auto) Baso # (Auto) PT INR APTT Sodium Potassium Chloride Carbon Dioxide Anion Gap BUN Creatinine Estimated Creat Clear Estimated GFR Est GFR ( Amer) Glucose POC Glucose 173 H Calcium Total Bilirubin Direct Bilirubin Indirect Bilirubin AST ALT Alkaline Phosphatase Troponin I Total Protein Albumin Triglycerides Cholesterol LDL Cholesterol VLDL Cholesterol HDL Cholesterol Cholesterol/HDL Ratio Urine Color Urine Appearance Urine pH Ur Specific Shushan Urine Protein Urine Glucose (UA) Urine Ketones Urine Blood Urine Nitrate Urine Bilirubin Urine Urobilinogen Ur Leukocyte Esterase Urine WBC Ur Squamous Epith Cells Urine Bacteria DS: Diagnosis - Discharge Diagnosis (1) Slurred speech Status: Chronic (2) Encephalomalacia Status: Chronic (3) Renal insufficiency Status: Chronic Discharge Plan - Patient Discharge Instructions ACTIVITY: Continue current activity DIET: continue same diet Patient Instructions: Kidney Failure, DI for Stroke-Ischemic - Follow up Plan Follow up with: Denise Oviedo APRN [Nurse Practitioner] - Disposition: er [facility] Home Medications: Home Medications Medication Instructions Recorded Confirmed Type Acetaminophen [Tylenol 500mg 1,000 mg PO Q6HP PRN 01/22/19 04/11/19 History tablet] Allopurinol [Allopurinol 100mg 200 mg PO DAILY 01/22/19 04/12/19 History tablet] Atorvastatin Calcium [Atorvastatin 20 mg PO HS 01/22/19 04/12/19 History 20mg Tab] Calcitriol [Rocaltrol] 0.25 mcg PO DAILY 01/22/19 04/11/19 History Ferrous Sulfate 325 mg PO BID 01/22/19 04/12/19 History Levothyroxine Sodium [Synthroid 100 mcg PO DAILY 01/22/19 04/12/19 History 100mcg (0.1mg) tablet] Metoprolol Tartrate [Lopressor 12.5 mg PO BID 01/22/19 04/12/19 History 25mg tablet] Pantoprazole Sodium [Protonix 40mg 40 mg PO DAILY 01/22/19 04/12/19 History tablet] Rivaroxaban [Xarelto 15mg tablet] 15 mg PO DAILY 01/22/19 04/12/19 History Linagliptin [Tradjenta 5mg tablet] 5 mg PO DAILY 01/26/19 04/12/19 History Memantine HCl [Namenda] 1 each PO HS 04/01/19 04/12/19 History Mirtazapine 15 mg PO HS 04/01/19 04/12/19 History levETIRAcetam [Levetiracetam] 500 mg PO BID 04/01/19 04/12/19 History KCl 10mEq/100ml [Potassium 20 meq PO DAILY 04/11/19 04/12/19 History Chloride 10mEq/100mL IVPB] Prescriptions/Medication Reconciliation: Continued Metoprolol Tartrate [Lopressor 25mg tablet] 12.5 mg PO BID Allopurinol [Allopurinol 100mg tablet] 200 mg PO DAILY Rivaroxaban [Xarelto 15mg tablet] 15 mg PO DAILY Levothyroxine Sodium [Synthroid 100mcg (0.1mg) tablet] 100 mcg PO DAILY Ferrous Sulfate 325 mg PO BID Calcitriol [Rocaltrol] 0.25 mcg PO DAILY Acetaminophen [Tylenol 500mg tablet] 1,000 mg PO Q6HP PRN PRN Reason: pain Memantine HCl [Namenda] 1 each PO HS levETIRAcetam [Levetiracetam] 500 mg PO BID KCl 10mEq/100ml [Potassium Chloride 10mEq/100mL IVPB] 20 meq PO DAILY Pantoprazole Sodium [Protonix 40mg tablet] 40 mg PO DAILY Atorvastatin Calcium [Atorvastatin 20mg Tab] 20 mg PO HS Linagliptin [Tradjenta 5mg tablet] 5 mg PO DAILY Mirtazapine 15 mg PO HS - Problem Reconciliation Problems Reviewed?: Yes
--- NOTE | 2019-04-12 13:50 | Electrocardiograph Report ---
APPROVED REPORT Exam: Resting ECG HR:180 bpm ECG Measurements Heart Rate 180 AXES QRSd 18 QRS -27 QT 198 T162 QTc 342 <Conclusion> atrial flutter with variable conduction Low voltage QRS late r wave progression Abnormal ECG Electronically signed by : Terrence Wells, 04/12/2019 13:49:43
== END 2019-04-12 12:25 ==
LOC: 2ND 18:49 → ER 18:49 → 2ND 22:22
PROVIDERS: ADMIT Internal Medicine Adolescent Medicine; ATTEND Internal Medicine Adolescent Medicine
DX: I13.0 Hypertensive heart and chronic kidney disease with heart failure and stage 1 through stage 4 chronic kidney disease, or unspecified chronic kidney disease; Z86.011 Personal history of benign neoplasm of the brain; E03.9 Hypothyroidism, unspecified; Z98.890 Other specified postprocedural states; N39.0 Urinary tract infection, site not specified; G81.94 Hemiplegia, unspecified affecting left nondominant side; F80.2 Mixed receptive-expressive language disorder
CPT/HCPCS: 36415; 70450; 80048; 80061; 80076; 81001; 82962; 84484; 85025; 85610; 85730; 87040; 87086; 87088; 87186; 93005; 96365; 99284; G0378